=== PATIENT | female | born 1960 | race Caucasian/White ===

== ENCOUNTER → 2016-07-22 | Outpatient (CLI) | payer MEDICARE ==
--- NOTE | 2016-07-22 23:13 | WWHP ---
DATE OF SERVICE: 07/22/2016. CHIEF COMPLAINT: Patient is here for her routine gynecologic exam and mammogram. HPI: This is a 55-year-old G0 with an LMP of 1994. She is status post BRADFORD and later BSO for uterine and ovarian cancer. The patient is without gynecologic complaints. PAST MEDICAL HISTORY: Endometrial cancer in 1994, ovarian cancer 2000. She is status post BRADFORD and later BSO for these cancers. Also history of elevated cholesterol, seizure disorder, osteoarthritis of the back, hypothyroidism, asthma, and schizoaffective disorder and gastroesophageal reflux disease. MEDICATIONS: 1. Advair Diskus 1 puff b.i.d. 2. Cyclobenzaprine 10 mg b.i.d. 3. Flonase nasal spray one spray b.i.d. 4. Thyroxine 100 mcg daily. 5. Omeprazole 40 mg daily. 6. Risperdal 2 mg daily. 7. Tegretol-XR 300 mg b.i.d. 8. Ventolin HFA inhaler 2 puffs q.i.d. p.r.n. 9. Zocor 20 mg at bedtime. ALLERGIES TO PENICILLIN BENADRYL GARAMYCIN, SYNALGOS, NEOSPORIN, ERYTHROMYCIN, OMNIPAQUE AND CODEINE. 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 SOCIAL HISTORY: She denies tobacco, alcohol, and drug use. She is single and is not sexually active. REVIEW OF SYSTEMS: She has gained about 12 pounds in the last year. She denies respiratory, cardiac, or GI problems. MUSCULOSKELETAL: She has some low back discomfort and some achiness in her legs because of increased activity that she recently did. PHYSICAL EXAM: Blood pressure 120/79. Height 5 feet 9 inches. Weight 229 pounds. Temperature 97.8, pulse 83. This a well-developed, well-nourished white female who is alert and oriented x3 in no acute distress. HEENT is within normal limits. NECK: Supple without mass or thyromegaly. CHEST AND LUNGS: Clear to auscultation. HEART: Regular rate and rhythm. Breasts are without mass or discharge. Axillary exam is negative for adenopathy. BACK: Negative for CVA tenderness. ABDOMEN: Slight redness the umbilicus which is similar to her exam last year and there is no drainage noted. The abdomen is soft, nontender and mildly obese. There are no palpable abdominal masses. PELVIC EXAM: Normal external genitalia with minimal atrophy. Vagina reveals mild atrophy without lesions. There is no evidence of prolapse. There is no unusual discharge. Bimanual exam is negative for mass or tenderness. Rectovaginal exam negative for mass or tenderness and is negative for occult blood. EXTREMITIES: Nontender. IMPRESSION: 1. 55-year-old menopausal female, status post total abdominal hysterectomy and later BSO for endometrial ovarian cancers in the past. 2. Normal gynecologic exam. PLAN: 1. Pap smear of the vaginal cuff was performed because of her history of gynecologic cancers in the past. 2. Self-breast examination was discussed. 3. Mammogram will be done today. 4. Osteoporosis prevention was discussed. 5. She will return in one year.
--- NOTE | 2016-07-23 10:20 | MM ---
Reason for exam: screening (asymptomatic). Last mammogram was performed 1 year ago. History: Patient is postmenopausal, has history of ovarian cancer at age 40, and is nulliparous. Physical Findings: A clinical breast exam by your physician is recommended on an annual basis and results should be correlated with mammographic findings. MG 3D Screening Mammo W/Cad Bilateral CC and MLO view(s) were taken. XCCL view(s) were taken of the right breast. Prior study comparison: July 17, 2015, bilateral MG 3d screening mammo w/cad. July 11, 2014, bilateral MG screening mammo w CAD. July 05, 2013, bilateral digital screening mammo w/CAD. There are scattered fibroglandular densities. There is chronic nodularity in the right breast. There is no discrete abnormality. ASSESSMENT: Negative, BI-RAD 1 RECOMMENDATION: Routine screening mammogram of both breasts in 1 year.
== END | disposition home or self-care (01) ==
LOC: WWCWWP 11:23
PROVIDERS: ATTEND Obstetrics & Gynecology
DX: Z12.31 Encounter for screening mammogram for malignant neoplasm of breast (principal)
CPT/HCPCS: 77063; G0202

== ENCOUNTER → 2017-08-28 | Outpatient (CLI) | payer MEDICARE, OTHER ==
[2017-08-28 14:04] LABS: Basophils % (A) 0 %; Eosinophils # (A) 0.1 k/uL (0-0.7); Eosinophils % (A) 1 %; HCT 45.6 % (34.0-46.0); HGB 15.5 gm/dL (11.4-16.0); Lymphocytes # (A) 1.2 k/uL (1.0-4.8); Lymphocytes % (A) 14 %; MCH 30.3 pg (25.0-35.0); MCHC 33.9 g/dL (31.0-37.0); MCV 89.4 fL (80.0-100.0); Mean Platelet Volume 6.5; Monocytes # (A) 0.5 k/uL (0-1.0); Monocytes % (A) 6 %; Neutrophils # (A) 6.5 k/uL (1.3-7.7); Neutrophils % (A) 77 %; Platelet Count 274 k/uL (150-450); RBC 5.11 m/uL (3.80-5.40); RDW 12.7 % (11.5-15.5); WBC 8.4 k/uL (3.8-10.6)
[2017-08-28 14:14] LABS: Amorphous Sediment,Urine Occasional /hpf; Appearance,Urine Clear (Clear); Bilirubin,Urine Negative (Negative); Blood,Urine Negative (Negative); Color,Urine Dark Yellow; Glucose,Urine (UA) Negative (Negative); Ketones,Urine Trace (Negative); Leukocyte Esterase,Urine Trace (Negative); Mucus,Urine Occasional /hpf; Nitrite,Urine Negative (Negative); PH, Urine 5.5 (5.0-8.0); Protein,Urine Trace (Negative); Specific Gravity,Urine 1.031 (1.001-1.035); Squamous Epithelial Cell,Urine 1 /hpf (0-4); WBC,Urine 2 /hpf (0-5)
[2017-08-28 14:18] LABS: ALT 54 U/L (9-52); AST 39 U/L (14-36); Albumin 4.8 g/dL (3.5-5.0); Alkaline Phosphatase 139 U/L (38-126); Anion Gap 17 mmol/L; Blood Urea Nitrogen 24 mg/dL (7-17); Calcium 10.3 mg/dL (8.4-10.2); Carbon Dioxide 24 mmol/L (22-30); Chloride 106 mmol/L (98-107); Glucose 104 mg/dL (74-99); Potassium 4.3 mmol/L (3.5-5.1); Sodium 147 mmol/L (137-145); Total Bilirubin 0.4 mg/dL (0.2-1.3); Total Protein 7.6 g/dL (6.3-8.2)
[2017-08-28 15:58] LABS: Erythrocyte Sedimentation Rate 4 mm/hr (0-20)
== END | disposition home or self-care (01) ==
LOC: LABWHC1 13:32
PROVIDERS: ATTEND Internal Medicine Critical Care Medicine
DX: R50.9 Fever, unspecified (principal)
CPT/HCPCS: 36415; 80053; 81001; 85025; 85652

== ENCOUNTER → 2017-10-13 | Outpatient (CLI) | payer MEDICARE, OTHER ==
[2017-10-13 13:38] VITALS: BP 127/69; PULSE 88; TEMP 98.1
--- NOTE | 2017-10-13 14:16 | P.HPOB ---
History of Present Illness H&P Date: 10/13/17 Chief Complaint: The patient is here for her routine gynecologic exam. This is a 57-year-old G0 with an LMP of 1994. She is so supposed BRADFORD and later BSO for uterine and ovarian cancer. The patient is without gynecologic complaints. Review of Systems The patient's weight has been stable over the last year. She denies respiratory , cardiac, or G.I. problems. 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 She has no history of STDs. History of Any Multi-Drug Resistant Organisms: None Reported Past Surgical History: Hysterectomy (1995), Tonsillectomy Additional Past Surgical History / Comment(s): D&C, BSO in 2000, eye surgery, colonoscopy 2012(). Past Psychological History: Schizoaffective Disorder Smoking Status: Never smoker Past Alcohol Use History: None Reported Past Drug Use History: None Reported - Past Family History Father Family Medical History: Cancer (:), COPD, Hyperlipidemia, Hypertension Additional Family Medical History / Comment(s): Macular degeneration. Mother Family Medical History: Hyperlipidemia, Hypertension Medications and Allergies Home Medications Medication Instructions Recorded Confirmed Type Albuterol Inhaler [Ventolin Hfa mcg PO DIRECTED PRN 10/13/17 History Inhaler] Cyclobenzaprine [Flexeril] mg PO BID 10/13/17 History Fluticasone Propionate [Flovent device PO BID 10/13/17 History Diskus] Fluticasone/Salmeterol [Advair device INHALATION BID 10/13/17 History 250-50 Diskus] Levothyroxine Sodium [Synthroid] mcg PO DAILY 10/13/17 History Omeprazole [PriLOSEC] mg PO DAILY 10/13/17 History Simvastatin [Zocor] mg PO HS 10/13/17 History carBAMazepine [TEGretol XR] 300 mg PO DIRECTED 10/13/17 10/13/17 History risperiDONE [RisperDAL] mg PO HS 10/13/17 History Allergies Allergy/AdvReac Type Severity Reaction Status Date / Time Penicillins AdvReac Nausea & Unverified 10/13/17 13:34 Vomiting Exam Vital Signs Temp Pulse BP 10/13/17 13:34 98.1 F 88 127/69 Intake and Output 10/12/17 10/13/17 10/13/17 22:59 06:59 14:59 Other: Weight 103.419 kg Height 5'10", BMI 33 . This is a well-developed well-nourished heavyset white female who is alert and oriented times 3 in no acute distress. HEENT: Within normal limits. NECK: Supple without mass or thyromegaly. CHEST AND LUNGS: Clear to auscultation. HEART: Regular rate and rhythm. BREASTS: Are without mass or discharge. AXILLARY EXAM: Negative for adenopathy. BACK: Negative for CVA tenderness. ABDOMEN: Soft, obese, nontender, without palpable masses. PELVIC EXAM: External genitalia appears normal with mild atrophy. Vagina appears normal mild atrophy. There is no evidence of prolapse. Bimanual examination is negative for mass or tenderness. RECTAL EXAM: Rectovaginal exam is negative for mass or tenderness and is negative for occult blood. EXTREMITIES: Nontender. IMPRESSION: 1. 57-year-old menopausal female with history of endometrial cancer and ovarian cancer with no evidence of recurrence. 2. Multiple medical problems. PLAN: 1. Pap smear of the vaginal cuff was performed. 2. Self breast awareness was discussed. 3. Screening mammogram was recently done in July 2017. She'll repeat this in one year. 4. Osteoporosis prevention was discussed. She had a normal bone density testing 2013. We will plan on repeating this in 2019. 5. She will return in one year.
== END | disposition home or self-care (01) ==
LOC: WWCWWP 12:19
PROVIDERS: ATTEND Obstetrics & Gynecology
DX: Z53.9 Procedure and treatment not carried out, unspecified reason (principal)

== ENCOUNTER → 2018-08-16 | Outpatient (CLI) | payer MEDICARE, OTHER ==
--- NOTE | 2018-08-17 10:58 | MM ---
Reason for exam: screening (asymptomatic). Last mammogram was performed 1 year and 1 month ago. History: Patient is postmenopausal, has history of ovarian cancer at age 40, and is nulliparous. Physical Findings: A clinical breast exam by your physician is recommended on an annual basis and results should be correlated with mammographic findings. MG 3D Screening Mammo W/Cad Bilateral CC and MLO view(s) were taken. Prior study comparison: July 23, 2017, bilateral MG 3d screening mammo w/cad. July 22, 2016, bilateral MG 3d screening mammo w/cad. There are scattered fibroglandular densities. There is chronic nodularity in the right breast. No significant changes when compared with prior studies. ASSESSMENT: Negative, BI-RAD 1 RECOMMENDATION: Routine screening mammogram of both breasts in 1 year.
== END ==
LOC: RADMAMWWP 10:50
PROVIDERS: ATTEND Internal Medicine Critical Care Medicine
DX: Z12.31 Encounter for screening mammogram for malignant neoplasm of breast (principal)
CPT/HCPCS: 77063; 77067

== ENCOUNTER → 2020-11-21 | Outpatient (CLI) | payer MEDICARE, OTHER ==
[2020-11-21 11:18] VITALS: BP 120/86; PULSE 61; RESP 16; TEMP 98.4
--- NOTE | 2020-11-21 12:15 | P.HPOB ---
History of Present Illness H&P Date: 11/21/20 Chief Complaint: The patient is here for her routine gynecologic exam and ma mmogram. This is a 57-year-old G0 with an LMP of 1994. The patient is status post BRADFORD and later BSO for uterine cancer and ovarian cancer. The patient is without gynecologic complaints. She is not sexually active. Review of Systems She has gained about 18 kg over the past 3 years. She denies respiratory or cardiac problems. GI: The patient has been having some issues with stomach upset at night if she eats after 6 PM. Past Medical History Past Medical History: Asthma, Cancer (Endometrial cancer in 1994, ovarian cancer 2000.), GERD/Reflux, Hyperlipidemia, Osteoarthritis (OA), Seizure Disorder, Thyroid Disorder (Hypothyroid) Additional Past Medical History / Comment(s): Hypothyroidism. 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 She has no history of STDs. History of Any Multi-Drug Resistant Organisms: None Reported Past Surgical History: Hysterectomy (1995), Tonsillectomy Additional Past Surgical History / Comment(s): BRADFORD 1995, BSO in 2000. D&C, eye surgery, colonoscopy 2012(next after 5yr). Past Psychological History: Schizoaffective Disorder Smoking Status: Never smoker Past Alcohol Use History: None Reported Past Drug Use History: None Reported Additional History: She is single and is not seeing anybody and is not sexually active. She is disabled. - Past Family History Father Family Medical History: Cancer (:), COPD, Hyperlipidemia, Hypertension Additional Family Medical History / Comment(s): Colon cancer. Macular degeneration. Mother Family Medical History: Hyperlipidemia, Hypertension Medications and Allergies Home Medications Medication Instructions Recorded Confirmed Type Albuterol Inhaler (Mhu) [Ventolin mcg PO DIRECTED PRN 10/13/17 History Hfa Inhaler] Cyclobenzaprine [Flexeril] mg PO BID 10/13/17 History Fluticasone Propionate [Flovent device PO BID 10/13/17 History Diskus] Fluticasone/Salmeterol [Advair device INHALATION BID 10/13/17 History 250-50 Diskus] Levothyroxine Sodium [Synthroid] mcg PO DAILY 10/13/17 History Omeprazole [PriLOSEC] mg PO DAILY 10/13/17 History Simvastatin [Zocor] mg PO HS 10/13/17 History carBAMazepine [TEGretol XR] 300 mg PO DIRECTED 10/13/17 11/21/20 History risperiDONE [RisperDAL] mg PO HS 10/13/17 History Allergies Allergy/AdvReac Type Severity Reaction Status Date / Time Penicillins AdvReac Nausea & Unverified 11/21/20 10:59 Vomiting Exam Vital Signs Temp Pulse Resp BP Pulse Ox 11/21/20 11:06 98.4 F 61 16 120/86 96 Intake and Output 11/20/20 11/21/20 11/21/20 22:59 06:59 14:59 Other: Weight 121.563 kg Height 5 feet 10 inches, weight 268 pounds, BMI 38.5. This is a well-developed well-nourished heavyset white female who is alert and oriented times 3 in no acute distress. HEENT: Within normal limits. NECK: Supple without mass or thyromegaly. CHEST AND LUNGS: Clear to auscultation. HEART: Regular rate and rhythm. BREASTS: Are without mass or discharge. AXILLARY EXAM: Negative for adenopathy. BACK: Negative for CVA tenderness. ABDOMEN: Soft, obese, nontender, without palpable masses. PELVIC EXAM: External genitalia appears normal with mild atrophy. Vagina appears normal mild atrophy. There is no evidence of prolapse. Bimanual examination is negative for mass or tenderness. RECTAL EXAM: Rectovaginal exam is negative for mass or tenderness and is negative for occult blood. EXTREMITIES: Nontender. IMPRESSION: 1. 60-year-old menopausal female status post BRADFORD and later BSO for endometrial cancer and ovarian cancer with no evidence of recurrence on exam. 2. Multiple medical problems. PLAN: 1. Pap smear of the vaginal cuff was performed. We have continued regular Pap smears because of her history of multiple gynecologic cancers. 2. Self breast awareness was discussed with the patient. We have also discussed symptoms associated with inflammatory breast cancer. 3. Screening mammogram will be done today. 4. Osteoporosis prevention was discussed. I have stressed the importance of adequate calcium, vitamin D and regular exercise. Recommended amounts of calcium and vitamin D were also discussed. I have recommended bone density testing since it has been about 7 years since her last one. The order slip was given to the patient. 5. Colonoscopy was recommended since it has been about 8 years since her last one. She was told that should be repeated after 5 years and she does have family history of colon cancer. She will discuss this with her primary care physician and her upcoming appointment with him. 6. She was advised to return in one year for her annual well woman exam.
--- NOTE | 2020-11-22 11:14 | MM ---
Reason for exam: screening (asymptomatic). Last mammogram was performed 2 years and 3 months ago. History: Patient is postmenopausal, has history of ovarian cancer at age 40, and is nulliparous. Physical Findings: A clinical breast exam by your physician is recommended on an annual basis and results should be correlated with mammographic findings. MG 3D Screening Mammo W/Cad Bilateral CC, MLO, and XCCL view(s) were taken. Prior study comparison: August 16, 2018, bilateral MG 3d screening mammo w/cad. July 23, 2017, bilateral MG 3d screening mammo w/cad. The breast tissue is heterogeneously dense. This may lower the sensitivity of mammography. There is no discrete abnormality. No significant changes when compared with prior studies. ASSESSMENT: Negative, BI-RAD 1 RECOMMENDATION: Routine screening mammogram of both breasts in 1 year.
== END | disposition home or self-care (01) ==
LOC: WWCWWP 10:29
PROVIDERS: ATTEND Obstetrics & Gynecology
DX: Z12.31 Encounter for screening mammogram for malignant neoplasm of breast (principal); Z85.43 Personal history of malignant neoplasm of ovary; Z85.42 Personal history of malignant neoplasm of other parts of uterus; Z78.0 Asymptomatic menopausal state
CPT/HCPCS: 77063; 77067

== ENCOUNTER → 2023-11-09 | Outpatient (CLI) | payer MEDICARE, OTHER ==
--- NOTE | 2023-12-02 20:10 | MM ---
Reason for Exam: Screening (asymptomatic). Last mammogram was performed 3 year(s) and 0 month(s) ago. Patient History: Menarche at age 11. Patient has no children. Left ovary removed at age 40. Right ovary removed at age 40. Hysterectomy at age 34. Postmenopausal. Ovarian cancer, age 40. Risk Values: Josselyn 5 year model risk: 1.9%. NCI Lifetime model risk: 8.1%. Prior Study Comparison: 07/23/2017 Bilateral Screening Mammogram, [facility]. 08/16/2018 Bilateral Screening Mammogram, [facility]. 11/21/2020 Bilateral Screening Mammogram, [facility]. Tissue Density: There are scattered areas of fibroglandular density. Findings: Analyzed By CAD. No elongated nodularity anterior depth left breast at the upper quadrant. Further evaluation recommended. Lateral asymmetric density right cc view remains unchanged. Otherwise, no significant change. Overall Assessment: Incomplete: need additional imaging evaluation, BI-RAD 0 Management: Special View Mammogram of the left breast. Diagnostic Breast Ultrasound of the left breast. . [facility] will attempt to contact patient to return for supplemental views and ultrasound if indicated. Electronically signed and approved by: Osmar Stockton M.D. Radiologist
== END | disposition home or self-care (01) ==
LOC: RADMAMWWP 14:40
PROVIDERS: ATTEND Internal Medicine Critical Care Medicine
DX: Z12.31 Encounter for screening mammogram for malignant neoplasm of breast (principal); M85.88 Other specified disorders of bone density and structure, other site; Z79.52 Long term (current) use of systemic steroids; Z78.0 Asymptomatic menopausal state; R92.323 Mammographic fibroglandular density, bilateral breasts
CPT/HCPCS: 77063; 77067

== ENCOUNTER → 2024-02-03 | Outpatient (CLI) | payer MEDICARE, OTHER ==
--- NOTE | 2024-02-03 14:56 | BD ---
EXAMINATION TYPE: Axial Bone Density DATE OF EXAM: 02/03/2024 CLINICAL HISTORY: 63 years old Female. ICD-10 CODE: M85.88 OTHER DISORDER OF BONE DENSITY , Z78.0 pt yelling and out of breath, difficult to understand, slurring Height: 66 Weight: 275 FRAX RISK QUESTIONS: Alcohol (3 or more units per day): unsure Glucocorticoids (More than 3mos): asthma inhalers, for long time, and prednisone on and off (Ex: prednisone, prednisolone, methylprednisolone, dexamethasone, and hydrocortisone). History of Fracture in Adulthood: yes Secondary Osteoporosis: yes 3. Menopause before 45: yes, 38 yrs old RISK FACTORS HISTORY OF: rt elbow fx, right foot broken, MEDICATIONS: Thyroid Medications: yes, synthroid product long time, vit d, calcium, hx of ovarian cancer, chemo, cholesterol meds, osteoarthritis EXAM MEASUREMENTS: Bone mineral densitometry was performed using the [employer] System. Bone mineral density as measured about the Lumbar spine is: ----- L1-L4(G/cm2): 1.323 T Score Values are as follows: ----- L1: 0.6 ----- L2: -0.1 ----- L3: 1.0 ----- L4: 2.8 ----- L1-L4: 1.2 Z Score Values are as follows: ----- L1: 0.9 ----- L2: 0.2 ----- L3: 1.3 ----- L4: 3.1 ----- L1-L4: 1.5 Bone mineral density has: Increased 6.3% since her last study in 07.05.2013 Bone mineral density about the R hip (g/cm2): 0.957 Bone mineral density about the L hip (g/cm2): 1.010 T Score values are as follows: -----R Neck: -1.4 -----L Neck: -1.1 -----R Total: -0.4 -----L Total: 0.0 Z Score values are as follows: -----R Neck: -0.8 -----L Neck: -0.4 -----R Total: -0.1 -----L Total: 0.3 Bone mineral density has: Increased 9.7% since her last study in 07.05.2013 FRAX%s: The graph provided illustrates a 18.7 % chance for a major osteoporotic fx and a 1.8% chance for the hips probability for fx in 10 years time. IMPRESSION: Osteopenia (T Score between -2.5 and -1). There is slightly increased risk of fracture and the patient may be considered for treatment. Re-Screen 2-5 years. NOTE: T-SCORE=SD OF THE YOUNG ADULT MEAN. [facility], , 02/03/2024 2:54 PM
== END | disposition home or self-care (01) ==
LOC: RADBDWWP 13:22
PROVIDERS: ATTEND Internal Medicine Critical Care Medicine
CPT/HCPCS: 77080

== ENCOUNTER 2024-03-11 07:56 | Inpatient (IN) | payer MEDICARE, OTHER ==
--- NOTE | 2024-03-11 08:23 | ED ---
General Adult HPI - General Chief complaint: Urogenital Stated complaint: Kidney stones Time Seen by Provider: 03/11/24 07:58 Source: patient, EMS, RN notes reviewed, old records reviewed Mode of arrival: EMS Limitations: no limitations - History of Present Illness Initial comments: Patient is a 63-year-old female with history of schizophrenia transferred from [place] for kidney stone. Patient states symptoms started around 10:00 yesterday. Patient states discomfort is mild at this time rated 3/10. Patient denies fever. No nausea or vomiting. Patient denies history of similar symptoms previously. Chart was reviewed for [facility]. CT report and labs are not available at this time and we are contacting them for reports. - Related Data Home Medications Medication Instructions Recorded Confirmed Albuterol Inhaler [Ventolin Hfa 2 puff INHALATION RT-Q4H 10/13/17 03/11/24 Inhaler] Cyclobenzaprine [Flexeril] 10 mg PO BID 10/13/17 03/11/24 Levothyroxine Sodium [Synthroid] 100 mcg PO DAILY 10/13/17 03/11/24 Omeprazole [PriLOSEC] 40 mg PO DAILY 10/13/17 03/11/24 Simvastatin [Zocor] 20 mg PO DAILY 10/13/17 03/11/24 risperiDONE [RisperDAL] 2 mg PO HS 10/13/17 03/11/24 Fluticasone Nasal [place] [Flonase 2 spr EA NOSTRIL DAILY 03/11/24 03/11/24 Nasal [place]] Fluticasone Propion/Salmeterol 1 puff INHALATION RT-BID 03/11/24 03/11/24 [Fluticasone-Salmeterol 250-50] carBAMazepine [carBAMazepine ER] 300 mg PO BID 03/11/24 03/11/24 Allergies Allergy/AdvReac Type Severity Reaction Status Date / Time bacitracin Allergy Unknown Verified 03/11/24 11:55 [From Neosporin ([id number])] clarithromycin Allergy Unknown Verified 03/11/24 11:55 codeine Allergy Unknown Verified 03/11/24 11:55 diphenhydramine Allergy Unknown Verified 03/11/24 11:55 [From Benadryl] erythromycin base Allergy Unknown Verified 03/11/24 11:55 gentamicin Allergy Unknown Verified 03/11/24 11:55 Iodinated Contrast Media Allergy Unknown Verified 03/11/24 11:55 iodine Allergy Unknown Verified 03/11/24 11:55 iohexol [From Omnipaque] Allergy Unknown Verified 03/11/24 11:55 miconazole Allergy Unknown Verified 03/11/24 11:55 [From Neosporin AF] neomycin Allergy Unknown Verified 03/11/24 11:55 [From Neosporin ([id number])] polymyxin B Allergy Unknown Verified 03/11/24 11:55 [From Neosporin ([id number])] Penicillins AdvReac Nausea & Verified 03/11/24 11:55 Vomiting Review of Systems ROS Statement: Those systems with pertinent positive or pertinent negative responses have been documented in the HPI. ROS Other: All systems not noted in ROS Statement are negative. Constitutional: Denies: fever Eyes: Denies: eye pain ENT: Denies: ear pain Gastrointestinal: Reports: as per HPI Musculoskeletal: Reports: as per HPI Past Medical History Past Medical History: Asthma, Cancer, GERD/Reflux, Hyperlipidemia, Osteoarthritis (OA), Seizure Disorder, Thyroid Disorder Additional Past Medical History / Comment(s): Hypothyroidism. 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 She has no history of STDs. History of Any Multi-Drug Resistant Organisms: None Reported Past Surgical History: Hysterectomy, Tonsillectomy Additional Past Surgical History / Comment(s): [place] 1995, BSO in 2000. D&C, eye surgery, colonoscopy 2012(next after 5yr). Past Psychological History: Schizoaffective Disorder Smoking Status: Never smoker Past Alcohol Use History: None Reported Past Drug Use History: None Reported - Past Family History Father Family Medical History: Cancer (:), COPD, Hyperlipidemia, Hypertension Additional Family Medical History / Comment(s): Colon cancer. Macular degeneration. Mother Family Medical History: Hyperlipidemia, Hypertension General Exam Limitations: no limitations General appearance: alert Head exam: Present: normocephalic Eye exam: Present: normal appearance Neck exam: Present: normal inspection. Absent: tenderness, meningismus Respiratory exam: Present: normal lung sounds bilaterally Cardiovascular Exam: Present: regular rate, normal rhythm Expanded Peripheral pulses: 2+: Posterior Tibialis (R), Posterior Tibialis (L), Dorsalis Pedis (R), Dorsalis Pedis (L) GI/Abdominal exam: Present: soft. Absent: distended, tenderness, guarding, rebound, rigid, pulsatile mass Extremities exam: Present: normal inspection Back exam: Present: CVA tenderness (L) (Mild tenderness to palpation) Neurological exam: Present: alert Psychiatric exam: Present: flat affect Skin exam: Present: normal color Course Vital Signs 03/11/24 03/11/24 03/11/24 07:57 08:20 08:30 Temperature 99.2 F Pulse Rate 109 H 111 H 112 H Respiratory 20 20 37 H Rate Blood Pressure 124/95 141/79 141/79 O2 Sat by Pulse 99 97 96 Oximetry 03/11/24 03/11/24 03/11/24 09:30 09:46 10:30 Temperature 103.2 F H 106.3 F H Pulse Rate 129 H 134 H Respiratory 25 H 48 H 30 H Rate Blood Pressure 128/66 128/66 168/47 O2 Sat by Pulse 97 96 95 Oximetry 03/11/24 03/11/24 03/11/24 11:00 11:07 11:39 Temperature 104.5 F H 103.6 F H Pulse Rate 115 H 105 H Respiratory 30 H 32 H Rate Blood Pressure 90/47 105/86 131/98 O2 Sat by Pulse 91 L 92 L 96 Oximetry 03/11/24 13:03 Temperature 102.4 F H Pulse Rate Respiratory Rate Blood Pressure O2 Sat by Pulse Oximetry Medical Decision Making - Medical Decision Making Patient provided 2 L fluid bolus for ideal body weight of 5 foot 10 female of 68 kg which is 2040 mL Was pt. sent in by a medical professional or institution (, PA, CARGO TRIMMER, urgent care, hospital, or snf...) When possible be specific @ -Patient was transferred from [facility] Did you speak to anyone other than the patient for history (EMS, parent, family, police, friend...)? What history was obtained from this source @ - transferring physician Did you review nursing and triage notes (agree or disagree)? Why? @ -I reviewed and agree with nursing and triage notes Were old charts reviewed (outside hosp., previous admission, EMS record, old EKG, old radiological studies, urgent care reports/EKG's, snf records)? Report findings @ -Chart reviewed from [facility] Differential Diagnosis (chest pain, altered mental status, abdominal pain women, abdominal pain men, vaginal bleeding, weakness, fever, dyspnea, syncope, headache, dizziness, GI bleed, back pain, seizure, CVA, palpatations, mental health, musculoskeletal)? @ -Differential Abdominal Pain Women: Appendicitis, Cholecystitis, diverticulosis, ischemic bowel, pancreatitis, hepatitis, UTI, gastroenteritis, AAA, incarcerated hernia, bowel obstruction, constipation, inflammatory bowel, hepatitis, peptic ulcer disease, splenic infarction, perforated viscus, vulvitis, ovarian torsion, PID, kidney stone, placenta abruption, this is not meant to be an all-inclusive list EKG interpreted by me (3pts min.). @ -As above X-rays interpreted by me (1pt min.). @ -KUB shows delayed excretion left renal. Chest x-ray shows limited exam. Hypoventilation. CT interpreted by me (1pt min.). @ -CT angio of the chest was ordered and is still pending U/S interpreted by me (1pt. min.). @ -None done What testing was considered but not performed or refused? (CT, X-rays, U/S, labs)? Why? @ -CT angio of the chest was ordered and is still pending What meds were considered but not given or refused? Why? @ -None Did you discuss the management of the patient with other professionals (professionals i.e. , PA, CARGO TRIMMER, lab, RT, psych nurse, social human services assistants, non licensed operator, teacher, safety security officer, nurse outreach case manager)? Give summary @ -Case was discussed with Dr. Kelley who will consult and agrees with medical admission and Rocephin. Case again discussed with Dr. Kelley with plans to take patient to the OR for probable stent placement. Case also discussed with mary ann Reardon with [facility] who will admit. Was smoking cessation discussed for >3mins.? @ -No Was critical care preformed (if so, how long)? @ -33 minutes critical care time Were there social determinants of health that impacted care today? How? (Homelessness, low income, unemployed, alcoholism, drug addiction, transportation, low edu. Level, literacy, decrease access to med. care, senior living, rehab)? @ -No Was there de-escalation of care discussed even if they declined (Discuss DNR or withdrawal of care, Hospice)? DNR status @ -No What co-morbidities impacted this encounter? (DM, HTN, Smoking, COPD, CAD, Cancer, CVA, ARF, Chemo, Hep., AIDS, mental health diagnosis, sleep apnea, morbid obesity)? @ -History of schizophrenia Was patient admitted / discharged? Hospital course, mention meds given and route, prescriptions, significant lab abnormalities, going to OR and other pertinent info. @ -Patient presents as a transfer with concern for staghorn calculi. There is concern for potential infection as patient does develop fever and abnormal vital signs. Patient given fluids, blood culture and lactic acid ordered. IV antibiotics ordered. Patient will be admitted with urology consult. Admission orders written. Consults placed. Undiagnosed new problem with uncertain prognosis? @ -No Drug Therapy requiring intensive monitoring for toxicity (Heparin, Nitro, Insulin, Cardizem)? @ -No Were any procedures done? @ -No Diagnosis/symptom? @ -UTI, sepsis severe, kidney stone Acute, or Chronic, or Acute on Chronic? @ -Acute, acute, acute Uncomplicated (without systemic symptoms) or Complicated (systemic symptoms)? @ -Default Side effects of treatment? @ -No Exacerbation, Progression, or Severe Exacerbation? @ -No Poses a threat to life or bodily function? How? (Chest pain, [place], [place], pneumonia, PE, COPD, DKA, ARF, appy, cholecystitis, CVA, Diverticulitis, Homicidal, Suicidal, threat to staff... and all critical care pts) @ -Threat for multiorgan dysfunction. Threat to renal function There is concern for severe sepsis diagnosed at 10:40 AM. - Lab Data Result diagrams: 03/11/24 09:10 03/11/24 09:10 Lab Results 03/11/24 03/11/24 03/11/24 Range/Units 09:10 09:10 09:10 WBC 17.5 H (3.8-10.6) k/uL RBC 4.65 (3.80-5.40) m/uL Hgb 14.3 (11.4-16.0) gm/dL Hct 42.3 (34.0-46.0) % MCV 90.9 (80.0-100.0) fL MCH 30.7 (25.0-35.0) pg MCHC 33.8 (31.0-37.0) g/dL RDW 13.1 (11.5-15.5) % Plt Count 174 (150-450) k/uL MPV 6.8 Neutrophils % 96 % Lymphocytes % 2 % Monocytes % 1 % Eosinophils % 0 % Basophils % 0 % Neutrophils # 16.8 H (1.3-7.7) k/uL Lymphocytes # 0.3 L (1.0-4.8) k/uL Monocytes # 0.2 (0-1.0) k/uL Eosinophils # 0.1 (0-0.7) k/uL Basophils # 0.0 (0-0.2) k/uL Sodium 139 (137-145) mmol/L Potassium 4.2 (3.5-5.1) mmol/L Chloride 108 H (98-107) mmol/L Carbon Dioxide 22 (22-30) mmol/L Anion Gap 9 mmol/L BUN 20 H (7-17) mg/dL Creatinine 1.07 H (0.52-1.04) mg/dL Est GFR (CKD-EPI)AfAm 64 (>60 ml/min/1.73 sqM) Est GFR (CKD-EPI)NonAf 56 (>60 ml/min/1.73 sqM) Glucose 169 H (74-99) mg/dL Calcium 9.2 (8.4-10.2) mg/dL Total Bilirubin 0.8 (0.2-1.3) mg/dL AST 39 H (14-36) U/L ALT 34 (4-34) U/L Alkaline Phosphatase 129 H (38-126) U/L Total Protein 6.5 (6.3-8.2) g/dL Albumin 4.1 (3.5-5.0) g/dL Amylase 40 (30-110) U/L Lipase 32 (23-300) U/L Urine Color Urine Appearance (Clear) Urine pH (5.0-8.0) Ur Specific [place] (1.001-1.035) Urine Protein (Negative) Urine Glucose (UA) (Negative) Urine Ketones (Negative) Urine Blood (Negative) Urine Nitrite (Negative) Urine Bilirubin (Negative) Urine Urobilinogen (<2.0) mg/dL Ur Leukocyte Esterase (Negative) Urine RBC (0-5) /hpf Urine WBC (0-5) /hpf Urine WBC Clumps (None) /hpf Urine Mucus (None) /hpf Influenza Type A (PCR) Not Detected (Not Detectd) Influenza Type B (PCR) Not Detected (Not Detectd) RSV (PCR) Not Detected (Not Detectd) SARS-CoV-2 (PCR) Not Detected (Not Detectd) 03/11/24 Range/Units 11:13 WBC (3.8-10.6) k/uL RBC (3.80-5.40) m/uL Hgb (11.4-16.0) gm/dL Hct (34.0-46.0) % MCV (80.0-100.0) fL MCH (25.0-35.0) pg MCHC (31.0-37.0) g/dL RDW (11.5-15.5) % Plt Count (150-450) k/uL MPV Neutrophils % % Lymphocytes % % Monocytes % % Eosinophils % % Basophils % % Neutrophils # (1.3-7.7) k/uL Lymphocytes # (1.0-4.8) k/uL Monocytes # (0-1.0) k/uL Eosinophils # (0-0.7) k/uL Basophils # (0-0.2) k/uL Sodium (137-145) mmol/L Potassium (3.5-5.1) mmol/L Chloride (98-107) mmol/L Carbon Dioxide (22-30) mmol/L Anion Gap mmol/L BUN (7-17) mg/dL Creatinine (0.52-1.04) mg/dL Est GFR (CKD-EPI)AfAm (>60 ml/min/1.73 sqM) Est GFR (CKD-EPI)NonAf (>60 ml/min/1.73 sqM) Glucose (74-99) mg/dL Calcium (8.4-10.2) mg/dL Total Bilirubin (0.2-1.3) mg/dL AST (14-36) U/L ALT (4-34) U/L Alkaline Phosphatase (38-126) U/L Total Protein (6.3-8.2) g/dL Albumin (3.5-5.0) g/dL Amylase (30-110) U/L Lipase (23-300) U/L Urine Color Light Red Urine Appearance Turbid H (Clear) Urine pH 6.0 (5.0-8.0) Ur Specific [place] 1.043 H (1.001-1.035) Urine Protein 2+ H (Negative) Urine Glucose (UA) Trace H (Negative) Urine Ketones Trace H (Negative) Urine Blood Large H (Negative) Urine Nitrite Positive H (Negative) Urine Bilirubin Negative (Negative) Urine Urobilinogen <2.0 (<2.0) mg/dL Ur Leukocyte Esterase Large H (Negative) Urine RBC >182 H (0-5) /hpf Urine WBC >182 H (0-5) /hpf Urine WBC Clumps Occasional H (None) /hpf Urine Mucus Few H (None) /hpf Influenza Type A (PCR) (Not Detectd) Influenza Type B (PCR) (Not Detectd) RSV (PCR) (Not Detectd) SARS-CoV-2 (PCR) (Not Detectd) Critical Care Time Critical Care Time: Yes Disposition Clinical Impression: Calculus of kidney, Urinary tract infection, Severe sepsis Disposition: ADMITTED IP TO THIS [facility] Condition: Serious Is patient prescribed a controlled substance at d/c from ED?: No Referrals: Alyssa Madden MD [Primary Care Provider] - 1-2 days Time of Disposition: 13:15
[2024-03-11 09:26] LABS: Basophils % (A) 0 %; Eosinophils # (A) 0.1 k/uL (0-0.7); Eosinophils % (A) 0 %; HCT 42.3 % (34.0-46.0); HGB 14.3 gm/dL (11.4-16.0); Lymphocytes # (A) 0.3 k/uL (1.0-4.8); Lymphocytes % (A) 2 %; MCH 30.7 pg (25.0-35.0); MCHC 33.8 g/dL (31.0-37.0); MCV 90.9 fL (80.0-100.0); Mean Platelet Volume 6.8; Monocytes # (A) 0.2 k/uL (0-1.0); Monocytes % (A) 1 %; Neutrophils # (A) 16.8 k/uL (1.3-7.7); Neutrophils % (A) 96 %; Platelet Count 174 k/uL (150-450); RBC 4.65 m/uL (3.80-5.40); RDW 13.1 % (11.5-15.5); WBC 17.5 k/uL (3.8-10.6)
[2024-03-11 09:39] LABS: AST 39 U/L (14-36); African American GFR (CKD) 64 (>60 ml/min/1.73 sqM); Albumin 4.1 g/dL (3.5-5.0); Alkaline Phosphatase 129 U/L (38-126); Amylase 40 U/L (30-110); Anion Gap 9 mmol/L; Blood Urea Nitrogen 20 mg/dL (7-17); Calcium 9.2 mg/dL (8.4-10.2); Carbon Dioxide 22 mmol/L (22-30); Chloride 108 mmol/L (98-107); Glucose 169 mg/dL (74-99); Lipase 32 U/L (23-300); Non-African American GFR(CKD) 56 (>60 ml/min/1.73 sqM); Potassium 4.2 mmol/L (3.5-5.1); Sodium 139 mmol/L (137-145); Total Bilirubin 0.8 mg/dL (0.2-1.3); Total Protein 6.5 g/dL (6.3-8.2)
[2024-03-11] MEDS: LORazepam 2 MG/ML INJ IV STA (09:40)
[2024-03-11] MEDS: ACETAMINOPHEN IV (For NPO) 1,000 MG in EMPTY BAG 1 BAG IVPB STA (09:41)
[2024-03-11 10:19] LABS: ALT 34 U/L (4-34)
[2024-03-11] MEDS: SODIUM CHLORIDE 0.9% 1,000 ML IV STA ×2 (10:45→10:47)
[2024-03-11] MEDS: methylPREDNISolone SOD SUCCI 125 MG/2 ML VIAL IV STA (10:45)
[2024-03-11] MEDS: FAMOTIDINE 20 MG/2 ML VIAL IV STA (10:46)
[2024-03-11] MEDS: IBUPROFEN IV 800 MG in SODIUM CHLORIDE 0.9% 250 ML IV ONE (10:51)
--- NOTE | 2024-03-11 11:30 | XR ---
EXAMINATION TYPE: XR chest 1V DATE OF EXAM: 03/11/2024 COMPARISON: NONE CLINICAL INDICATION: Female, 63 years old with history of fever; FINDINGS: Limited by low lung volumes and hypoventilatory changes. There is diffuse interstitial prominence. He art size is accentuated likely upper limits of normal. Left base underpenetrated and not well assesse d. Left anterior chest wall injection port with catheter tip probably at the mid SVC level. IMPRESSION: Portable exam further limited by marked hypoventilatory changes. Correlate to exclude pulmonary vascu lar congestion. Left base underpenetrated and not well assessed. [facility], , 03/11/2024 11:28 AM
[2024-03-11 11:46] LABS: Appearance,Urine Turbid (Clear); Bilirubin,Urine Negative (Negative); Blood,Urine Large (Negative); Color,Urine Light Red; Glucose,Urine (UA) Trace (Negative); Ketones,Urine Trace (Negative); Leukocyte Esterase,Urine Large (Negative); Mucus,Urine Few /hpf; Nitrite,Urine Positive (Negative); Protein,Urine 2+ (Negative); RBC,Urine >182 /hpf (0-5); Specific Gravity,Urine 1.043 (1.001-1.035); Urobilinogen,Urine <2.0 mg/dL (<2.0); WBC,Urine >182 /hpf (0-5)
--- NOTE | 2024-03-11 12:05 | XR ---
EXAMINATION TYPE: XR KUB DATE OF EXAM: 03/11/2024 10:21 AM COMPARISON: Correlation outside CT 03/11/2024 CLINICAL INDICATION: Female, 63 years old with history of Left flank pain, , FINDINGS: There is excreted contrast from the left kidney. S1 indicate delayed excretion from the left kidney. The patient's outside CT is reviewed in addition to the left-sided staghorn calculi measuring up to 1 .3 cm, renal presence of a mid left ureteral stone measuring 7 mm. Nonobstructive bowel gas pattern. Contrast collecting within the bladder. Lung bases are clear. IMPRESSION: 1. The patient's outside CT is reviewed. We note a 7 mm stone in the mid left ureter. This would acco unt for the delayed excreting contrast now seen from the left kidney. 2. Redemonstrated staghorn calculi left kidney measuring up to 1.3 cm. [facility], , 03/11/2024 12:03 PM
--- NOTE | 2024-03-11 13:15 | CT ---
EXAMINATION TYPE: CT angio chest CT DLP: 1210.8 mGycm, Automated exposure control for dose reduction was used. DATE OF EXAM: 03/11/2024 12:49 PM COMPARISON: Chest radiograph from same day. CLINICAL INDICATION:Female, 63 years old with history of dyspnea; DYSPNEA TECHNIQUE/CONTRAST: CTA scan of the thorax is performed with IV Contrast, patient injected with 80 mL of Isovue 370, pulm onary embolism protocol. MIP images are created and reviewed. Reported patient has iodine and Benad ryl allergy. FINDINGS: Limited examination due to patient unable to follow breathing commands and previously injec beth at outside facility. Pulmonary Artery: The pulmonary artery is of normal size. Essentially nondiagnostic for evaluation of pulmonary embolism due to poor contrast bolus. Lungs/Pleura: Limited due to respiratory motion. No pleural effusion or pneumothorax. Bilateral lower lobe dependent subsegmental atelectasis. No suspicious pulmonary mass or nodule. Airway: Large airways are patent. Heart: The heart is mildly enlarged for size.. No pericardial effusion. Vasculature: No evidence of aortic aneurysm. Left anterior chest wall Mediport catheter with poor vis ualization of the tip due to contrast. Mediastinum: No evidence of adenopathy. Musculoskeletal: Mild degenerative disc disease changes are present throughout the thoracic spine. No acute osseous abnormality. Soft Tissues: Unremarkable. Lower neck: No significant findings. Upper Abdomen: Diffuse low-attenuation to the liver parenchyma.. IMPRESSION: 1. Bilateral lower lobe subsegmental atelectasis. Exam is essentially nondiagnostic for evaluation of pulmonary embolus due to poor contrast bolus. Recommend VQ scan for further evaluation due to patien t's iodine and Benadryl allergy with prior administration of intravenous contrast at outside facility . 2. Hepatic steatosis. [facility], , 03/11/2024 1:09 PM
[2024-03-11] MEDS ORDERED: NALOXONE 0.4 MG/ML 1 ML VIAL IV PRN (13:17)
[2024-03-11] MEDS ORDERED: IBUPROFEN 400 MG TAB PO PRN (13:17)
[2024-03-11] MEDS: LACTATED RINGERS 1,000 ML IV ONE (13:58)
[2024-03-11] MEDS: SODIUM CHLORIDE 0.9% 1,000 ML IV ONE ×3 (13:58→17:29)
--- NOTE | 2024-03-11 14:20 | P.HPIM ---
History of Present Illness H&P Date: 03/11/24 Patient is a 63-year-old female with hyperlipidemia, asthma, GERD, hypothyroidism, seizures, and schizoaffective disorder who is a transfer from [facility] due to nephrolithiasis. Patient at time of interview was uncooperative and a poor historian. Per chart review, patient arrived in [facility] ED for left-sided flank pain that has been ongoing for months infrequently. She denied nausea, vomiting, chest pain, shortness of breath, hematuria, or dysuria. Today the pain occurred very acutely. While in the [facility] ED, she did began to develop left abdominal colicky pain that was 3 out of 10 in intensity and worsens with movement. Per ED RN, on arrival to our ED patient had intermittent confusion and was initially resistant to care, agitated and very diaphoretic. She also appeared to be short of breath. Imaging from [facility]: CT scan of the abdomen showed staghorn calculus with superior pole of the left kidney measuring up to 2 cm, and cholelithiasis. Labs from [facility], showed WBC elevated at 18.06 hemoglobin 14.7 platelet 227,000 neutrophils elevated at 89. Sodium 140 potassium 3.6 chloride 110 bicarb 23 glucose 156 which is elevated BUN 19.4 creatinine 0.94 AST 44 which is elevated ALT 39 that is elevated alk phos 145 which is elevated at lactic acid elevated at 2.5. TSH was normal at 2.32. Urinalysis at that time only had +3 blood VBG showed pH of 7.43 which is elevated pCO2 31 which is low and pO2 46.7 which is elevated Labs from [facility] ED: WBC 17.5 hemoglobin 14.3 platelet count 1 74,000 sodium 139 potassium 4.2 chloride 108 BUN 20 creatinine 1.07 glucose 169 AST 39 ALT 34 alk phos 129 amylase 40 lipase 32. Urinalysis was turbid in appearance +2 protein trace glucose trace ketones large blood positive for nitrites and leukocyte esterase, RBCs, WBCs. Patient was negative for influenza, RSV and SARS COV 2 Imaging and [facility] ED: Chest x-ray independently interpreted shows hypoaeration but with some congestion. KUB x-ray reported to have 7 mm stone in the left mid ureter and staghorn calculi in the left kidney measuring up to 1.3 cm. Vitals on admission to our ED showed patient was a febrile at 106.3 pulse rate 115 respiratory rate 30 blood pressure 168/47 oxygen saturation 95% on nasal cannula 3 L Review of systems: Pertinent positives and negatives as discussed in HPI, a complete review of systems was performed and all other systems are negative. Physical examination: Vital signs reviewed General: non toxic, mild distress, on 3 L nasal cannula Derm: no unusual rashes/lesions, warm Head: atraumatic, normocephalic, symmetric Eyes: EOMI, anicteric sclera, pupils equal round reactive to light ENT: Nose and ears atraumatic Neck: No cervical lymphadenopathy, trachea midline, supple Mouth: no lip lesion, mucus membranes moist Cardiovascular: S1S2 tachycardic no murmur Lungs: CTA bilateral, no rhonchi, no rales, no accessory muscle use Abdominal: soft, nondistended, tender to light palpation in the left upper quadrant, no guarding, midline scar below the umbilicus Ext: muscle strength 5 out of 5 in all 4 extremities grossly, no gross muscle atrophy, no contractures, positive dorsalis pedis pulse bilateral, no edema Neuro: CN II-XI grossly intact, no gross focal neuro deficits Psych: Alert and oriented x 3, intermittently confused, flat affect Assessment/Plan: 63-year-old female with history of schizoaffective disorder who is a transfer from [facility] due to nephrolithiasis and is here for urologic evaluation. #. Sepsis secondary to infected staghorn calculi #. ACRROLL, post renal, secondary to above #. Acute pyelonephritis secondary to above Cardiac monitoring N.p.o. for now Rocephin 2 g IVPB initiated in the ED Continue Rocephin 2 g IVPB every 12 hours Acetaminophen 1 g IVP given in the ED Continue with Tylenol 650 p.o. every 6 and ibuprofen 400 mg p.o. every 6 as needed for fever or pain 0.9 normal saline 2 L bolus initiated in the ED. transition to lactated Ringer's 130 cc/h CT scan of the abdomen showed staghorn calculus with superior pole of the left kidney measuring up to 2 cm, and cholelithiasis KUB x-ray reported to have 7 mm stone in the left mid ureter and staghorn calculi in the left kidney measuring up to 1.3 cm UA positive for pyuria BUN elevated at 21 creatinine elevated at 1.07 Urine cultures Blood cultures Lactic acid CBC and CMP in the a.m. Urology consulted. Retrograde urography ordered. Will take patient to the OR today. #. Hyperglycemia Glucose today at 169 A1c in the a.m. #. Elevated alkaline phosphatase ALP at 129. Patient has no right upper quadrant pain. Will monitor for now Chronic Conditions: #. Hyperlipidemia Continue simvastatin 20 mg p.o. #. Asthma Continue Ventolin inhaler #. Hypothyroidism Continue Synthroid 100 mcg p.o. daily #. Schizoaffective disorder #. History of seizures Seizure precautions Fall precautions On carbamazepine 300 mg every 12 hours, cyclobenzaprine 10 mg, and risperidone 2 mg p.o. daily Check carbamazepine levels Continue medications once reconciled #. GERD Continue omeprazole 40 mg p.o. daily F: 130 cc/h of lactated Ringer's E: Replete as needed N: N.p.o. for now A: Patient DVT ppx: Heparin subcu Dispo: The patient is admitted with an anticipated greater than 2 midnight stay for evaluation of sepsis due to staghorn calculi CODE STATUS: Full Anticipated discharge place: Home Joan Weaver MD PGY-1 IM Dictation was produced using [employer] dictation software. please excuse any grammatical, word or spelling errors. I saw and evaluated the patient during the velasquez and critical portions of this encounter, and discussed the case in detail with the resident author of this note, I agree with the Assessment and Plan, and my changes, if any, are noted below or highlighted in blue. Past Medical History Past Medical History: Asthma, Cancer, GERD/Reflux, Hyperlipidemia, Osteoarthritis (OA), Seizure Disorder, Thyroid Disorder Additional Past Medical History / Comment(s): Hypothyroidism. 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 She has no history of STDs. History of Any Multi-Drug Resistant Organisms: None Reported Past Surgical History: Hysterectomy, Tonsillectomy Additional Past Surgical History / Comment(s): BRADFORD 1995, BSO in 2000. D&C, eye surgery, colonoscopy 2012(next after 5yr). Past Psychological History: Schizoaffective Disorder Smoking Status: Never smoker Past Alcohol Use History: None Reported Past Drug Use History: None Reported - Past Family History Father Family Medical History: Cancer (:), COPD, Hyperlipidemia, Hypertension Additional Family Medical History / Comment(s): Colon cancer. Macular degeneration. Mother Family Medical History: Hyperlipidemia, Hypertension Medications and Allergies Home Medications Medication Instructions Recorded Confirmed Type Albuterol Inhaler [Ventolin Hfa 2 puff INHALATION RT-Q4H 10/13/17 03/11/24 History Inhaler] Cyclobenzaprine [Flexeril] 10 mg PO BID 10/13/17 03/11/24 History Levothyroxine Sodium [Synthroid] 100 mcg PO DAILY 10/13/17 03/11/24 History Omeprazole [PriLOSEC] 40 mg PO DAILY 10/13/17 03/11/24 History Simvastatin [Zocor] 20 mg PO DAILY 10/13/17 03/11/24 History risperiDONE [RisperDAL] 2 mg PO HS 10/13/17 03/11/24 History Fluticasone Nasal [place] [Flonase 2 spr EA NOSTRIL DAILY 03/11/24 03/11/24 History Nasal [place]] Fluticasone Propion/Salmeterol 1 puff INHALATION RT-BID 03/11/24 03/11/24 History [Fluticasone-Salmeterol 250-50] carBAMazepine [carBAMazepine ER] 300 mg PO BID 03/11/24 03/11/24 History Allergies Allergy/AdvReac Type Severity Reaction Status Date / Time bacitracin Allergy Unknown Verified 03/11/24 11:55 [From Neosporin ([id number])] clarithromycin Allergy Unknown Verified 03/11/24 11:55 codeine Allergy Unknown Verified 03/11/24 11:55 diphenhydramine Allergy Unknown Verified 03/11/24 11:55 [From Benadryl] erythromycin base Allergy Unknown Verified 03/11/24 11:55 gentamicin Allergy Unknown Verified 03/11/24 11:55 Iodinated Contrast Media Allergy Unknown Verified 03/11/24 11:55 iodine Allergy Unknown Verified 03/11/24 11:55 iohexol [From Omnipaque] Allergy Unknown Verified 03/11/24 11:55 miconazole Allergy Unknown Verified 03/11/24 11:55 [From Neosporin AF] neomycin Allergy Unknown Verified 03/11/24 11:55 [From Neosporin ([id number])] polymyxin B Allergy Unknown Verified 03/11/24 11:55 [From Neosporin ([id number])] Penicillins AdvReac Nausea & Verified 03/11/24 11:55 Vomiting Physical Exam Vitals: Vital Signs Temp Pulse Resp BP Pulse Ox 03/11/24 11:39 103.6 F H 105 H 32 H 131/98 96 03/11/24 11:07 104.5 F H 115 H 30 H 105/86 92 L 03/11/24 11:00 90/47 91 L 03/11/24 10:30 106.3 F H 30 H 168/47 95 03/11/24 09:46 134 H 48 H 128/66 96 03/11/24 09:30 103.2 F H 129 H 25 H 128/66 97 03/11/24 08:30 112 H 37 H 141/79 96 03/11/24 08:20 111 H 20 141/79 97 03/11/24 07:57 99.2 F 109 H 20 124/95 99 Intake and Output 03/10/24 03/11/24 03/11/24 22:59 06:59 14:59 Other: Weight 124.738 kg Results CBC & Chem 7: 03/11/24 09:10 03/11/24 09:10 Labs: Abnormal Lab Results - Last 24 Hours (Table) 03/11/24 03/11/24 03/11/24 Range/Units 09:10 09:10 11:13 WBC 17.5 H (3.8-10.6) k/uL Neutrophils # 16.8 H (1.3-7.7) k/uL Lymphocytes # 0.3 L (1.0-4.8) k/uL Chloride 108 H (98-107) mmol/L BUN 20 H (7-17) mg/dL Creatinine 1.07 H (0.52-1.04) mg/dL Glucose 169 H (74-99) mg/dL AST 39 H (14-36) U/L Alkaline Phosphatase 129 H (38-126) U/L Urine Appearance Turbid H (Clear) Ur Specific [place] 1.043 H (1.001-1.035) Urine Protein 2+ H (Negative) Urine Glucose (UA) Trace H (Negative) Urine Ketones Trace H (Negative) Urine Blood Large H (Negative) Urine Nitrite Positive H (Negative) Ur Leukocyte Esterase Large H (Negative) Urine RBC >182 H (0-5) /hpf Urine WBC >182 H (0-5) /hpf Urine WBC Clumps Occasional H (None) /hpf Urine Mucus Few H (None) /hpf
[2024-03-11] MEDS ORDERED: PROPOFOL 10 MG/ML 20 ML VIAL IV ONE (14:25)
[2024-03-11] MEDS ORDERED: fentaNYL (PF) 50 MCG/ML 2 ML AMP ONE (14:25)
[2024-03-11] MEDS ORDERED: LIDOCAINE 1% INJ 10MG/ML (20 ML MDV) ONE (14:25)
[2024-03-11] MEDS ORDERED: SUCCINYLCHOLINE CHLORIDE 200 MG/10 ML VIAL IV ONE (14:25)
[2024-03-11] MEDS: ONDANSETRON 4 MG/2 ML VIAL IVP STA (14:27)
[2024-03-11] MEDS ORDERED: ALBUTEROL NEBULIZED 2.5 MG/3 ML INHALATION PRN (14:28)
--- NOTE | 2024-03-11 14:36 | P.GSCN ---
History of Present Illness Consult date: 03/11/24 Reason for Consult: Left hydronephrosis, UTI Requesting physician: Catalino Newsome History of present illness: The patient is a 63-year-old white female with schizophrenia. She is a poor historian. Apparently, she developed left flank pain yesterday and presented to [facility]. CT scan showed a partial staghorn calculus. She was transferred to [facility] for further care. My review of the CT scan shows delayed uptake and excretion of the left kidney, with a possible left distal ureteral calculus at the ureterovesical junction. Urinalysis is consistent with infection, and she has had a fever as high as 106 F in the ER. She denies any prior history of urolithiasis. Review of Systems - Gastrointestinal Reports nausea, Reports vomiting - Genitourinary Genitourinary: Reports kidney stones, Denies dysuria, Denies hematuria Past Medical History Past Medical History: Asthma, Cancer, GERD/Reflux, Hyperlipidemia, Osteoarthritis (OA), Seizure Disorder, Thyroid Disorder Additional Past Medical History / Comment(s): Hypothyroidism. 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 She has no history of STDs. History of Any Multi-Drug Resistant Organisms: None Reported Past Surgical History: Hysterectomy, Tonsillectomy Additional Past Surgical History / Comment(s): BRADFORD 1995, BSO in 2000. D&C, eye surgery, colonoscopy 2012(next after 5yr). Past Psychological History: Schizoaffective Disorder Smoking Status: Never smoker Past Alcohol Use History: None Reported Past Drug Use History: None Reported - Past Family History Father Family Medical History: Cancer (:), COPD, Hyperlipidemia, Hypertension Additional Family Medical History / Comment(s): Colon cancer. Macular degeneration. Mother Family Medical History: Hyperlipidemia, Hypertension Medications and Allergies Home Medications Medication Instructions Recorded Confirmed Type Albuterol Inhaler [Ventolin Hfa 2 puff INHALATION RT-Q4H 10/13/17 03/11/24 History Inhaler] Cyclobenzaprine [Flexeril] 10 mg PO BID 10/13/17 03/11/24 History Levothyroxine Sodium [Synthroid] 100 mcg PO DAILY 10/13/17 03/11/24 History Omeprazole [PriLOSEC] 40 mg PO DAILY 10/13/17 03/11/24 History Simvastatin [Zocor] 20 mg PO DAILY 10/13/17 03/11/24 History risperiDONE [RisperDAL] 2 mg PO HS 10/13/17 03/11/24 History Fluticasone Nasal [place] [Flonase 2 spr EA NOSTRIL DAILY 03/11/24 03/11/24 History Nasal [place]] Fluticasone Propion/Salmeterol 1 puff INHALATION RT-BID 03/11/24 03/11/24 History [Fluticasone-Salmeterol 250-50] carBAMazepine [carBAMazepine ER] 300 mg PO BID 03/11/24 03/11/24 History Allergies Allergy/AdvReac Type Severity Reaction Status Date / Time bacitracin Allergy Unknown Verified 03/11/24 11:55 [From Neosporin ([id number])] clarithromycin Allergy Unknown Verified 03/11/24 11:55 codeine Allergy Unknown Verified 03/11/24 11:55 diphenhydramine Allergy Unknown Verified 03/11/24 11:55 [From Benadryl] erythromycin base Allergy Unknown Verified 03/11/24 11:55 gentamicin Allergy Unknown Verified 03/11/24 11:55 Iodinated Contrast Media Allergy Unknown Verified 03/11/24 11:55 iodine Allergy Unknown Verified 03/11/24 11:55 iohexol [From Omnipaque] Allergy Unknown Verified 03/11/24 11:55 miconazole Allergy Unknown Verified 03/11/24 11:55 [From Neosporin AF] neomycin Allergy Unknown Verified 03/11/24 11:55 [From Neosporin ([id number])] polymyxin B Allergy Unknown Verified 03/11/24 11:55 [From Neosporin ([id number])] Penicillins AdvReac Nausea & Verified 03/11/24 11:55 Vomiting Surgical - Exam Vital Signs Temp Pulse Resp BP Pulse Ox 99.2 F 109 H 20 124/95 99 03/11/24 07:57 03/11/24 07:57 03/11/24 07:57 03/11/24 07:57 03/11/24 07:57 - General well developed, well nourished, moderate distress - Respiratory normal respiratory effort - Psychiatric oriented to time, oriented to person, oriented to place, speech is normal, memory intact Results - Labs 03/11/24 09:10 03/11/24 09:10 Abnormal Lab Results - Last 24 Hours (Table) 03/11/24 03/11/24 03/11/24 Range/Units 09:10 09:10 11:13 WBC 17.5 H (3.8-10.6) k/uL Neutrophils # 16.8 H (1.3-7.7) k/uL Lymphocytes # 0.3 L (1.0-4.8) k/uL Chloride 108 H (98-107) mmol/L BUN 20 H (7-17) mg/dL Creatinine 1.07 H (0.52-1.04) mg/dL Glucose 169 H (74-99) mg/dL AST 39 H (14-36) U/L Alkaline Phosphatase 129 H (38-126) U/L Urine Appearance Turbid H (Clear) Ur Specific [place] 1.043 H (1.001-1.035) Urine Protein 2+ H (Negative) Urine Glucose (UA) Trace H (Negative) Urine Ketones Trace H (Negative) Urine Blood Large H (Negative) Urine Nitrite Positive H (Negative) Ur Leukocyte Esterase Large H (Negative) Urine RBC >182 H (0-5) /hpf Urine WBC >182 H (0-5) /hpf Urine WBC Clumps Occasional H (None) /hpf Urine Mucus Few H (None) /hpf Diabetes panel 03/11/24 Range/Units 09:10 Sodium 139 (137-145) mmol/L Potassium 4.2 (3.5-5.1) mmol/L Chloride 108 H (98-107) mmol/L Carbon Dioxide 22 (22-30) mmol/L BUN 20 H (7-17) mg/dL Creatinine 1.07 H (0.52-1.04) mg/dL Glucose 169 H (74-99) mg/dL Calcium 9.2 (8.4-10.2) mg/dL AST 39 H (14-36) U/L ALT 34 (4-34) U/L Alkaline Phosphatase 129 H (38-126) U/L Total Protein 6.5 (6.3-8.2) g/dL Albumin 4.1 (3.5-5.0) g/dL Calcium panel 03/11/24 Range/Units 09:10 Calcium 9.2 (8.4-10.2) mg/dL Albumin 4.1 (3.5-5.0) g/dL Pituitary panel 03/11/24 Range/Units 09:10 Sodium 139 (137-145) mmol/L Potassium 4.2 (3.5-5.1) mmol/L Chloride 108 H (98-107) mmol/L Carbon Dioxide 22 (22-30) mmol/L BUN 20 H (7-17) mg/dL Creatinine 1.07 H (0.52-1.04) mg/dL Glucose 169 H (74-99) mg/dL Calcium 9.2 (8.4-10.2) mg/dL Adrenal panel 03/11/24 Range/Units 09:10 Sodium 139 (137-145) mmol/L Potassium 4.2 (3.5-5.1) mmol/L Chloride 108 H (98-107) mmol/L Carbon Dioxide 22 (22-30) mmol/L BUN 20 H (7-17) mg/dL Creatinine 1.07 H (0.52-1.04) mg/dL Glucose 169 H (74-99) mg/dL Calcium 9.2 (8.4-10.2) mg/dL Total Bilirubin 0.8 (0.2-1.3) mg/dL AST 39 H (14-36) U/L ALT 34 (4-34) U/L Alkaline Phosphatase 129 H (38-126) U/L Total Protein 6.5 (6.3-8.2) g/dL Albumin 4.1 (3.5-5.0) g/dL - Imaging CT scan - abdomen: image reviewed Assessment and Plan (1) Calculus of kidney Current Visit: Yes Status: Acute Code(s): N20.0 - CALCULUS OF KIDNEY SNOMED Code(s): 41185052 (2) Unspecified hydronephrosis Current Visit: Yes Status: Acute Code(s): N13.30 - UNSPECIFIED HYDRONEPHROSIS SNOMED Code(s): 67875712 Plan: Urinalysis is suggestive of infection, and my review of the CT scan suggests that she has an obstructing left distal ureteral calculus, along with a partial left staghorn renal calculus. Urine and blood cultures have been sent, and she has received ceftriaxone. I have suggested she undergo cystoscopy with left ureteral stent insertion. I explained the rationale for this to her, and the fact that the stent will need to be removed at a later date, at the time of kidney stone removal, after her infection has cleared. Time with Patient: Greater than 30
[2024-03-11] MEDS: IOPAMIDOL-370 100ML BTL MISCELLANE ONE (14:54)
--- NOTE | 2024-03-11 15:33 | P.OP ---
Date of Procedure: 03/11/24 Preoperative Diagnosis: Left hydronephrosis, left renal calculus Postoperative Diagnosis: Same Procedure(s) Performed: Cystoscopy, left retrograde pyelogram, left ureteral stent insertion Anesthesia: GETA Estimated Blood Loss (ml): 0 IV fluids (ml): 600 Pathology: none sent Condition: stable Disposition: PACU Indications for Procedure: The patient is a 63-year-old white female with schizophrenia. She is a poor historian. Apparently, she developed left flank pain yesterday and presented to [facility]. CT scan showed a partial staghorn calculus. She was transferred to [facility] for further care. My review of the CT scan shows delayed uptake and excretion of the left kidney, with a possible left distal ureteral calculus at the ureterovesical junction. Urinalysis is consistent with infection, and she has had a fever as high as 106 F in the ER. She denies any prior history of urolithiasis. Operative Findings: Retained contrast within the left ureter. No obvious left distal ureteral obstruction. Successful left ureteral stent insertion. Description of Procedure: The patient was taken to the operating room and placed in the dorsolithotomy position, with legs supported in Jonathan stirrups. The Lam catheter was removed. The external genitalia was prepped and draped sterilely. The 30 lens was used to introduce the 22-[place]inamese Stortz cystoscopic sheath through the urethra and into the bladder under direct vision. The bladder was examined in its entirety. Both ureteral orifices were of normal anatomic location and configuration. No tumors or foreign bodies were seen. Inflammation was seen at the bladder dome, presumably due to the recent Lam catheter. Fluoroscopy revealed retained contrast within the left ureter and left renal pelvis, down to the bladder. The left ureter appeared somewhat dilated, though there was only minimal left hydronephrosis. On the right side, there was no contrast within the collecting system. Using a 10 [place]amese cone-tip catheter, a left retrograde pyelogram was performed. Attention was paid to the left distal ureter, but no obvious calculus or obstruction was seen. A 0.035 inch Glidewire was passed through the cystoscope. The left ureteral orifice was cannulated, and the Glidewire was slowly advanced. Some resistance was met approximately 1- 2 cm proximal to the UVJ, but with some manipulation the Glidewire was advanced up to the renal pelvis. A 26 cm, 6-[place]inames[place] double-J ureteral stent was placed over the wire. Proper stent positioning was verified fluoroscopically and endoscopically. There was evidence of a "hydronephrotic morin", consistent with obstruction, with urine which was clear in appearance. The bladder was emptied and the cystoscope removed. The Lam catheter was replaced. The patient tolerated the procedure well and was taken to the recovery room in stable condition.
--- NOTE | 2024-03-11 15:36 | FL ---
EXAMINATION TYPE: FL urography retrograde DATE OF EXAM: 03/11/2024 FLUOROSCOPY fl time 10.6 dap [id number] cysto with stent placement with Dr. Hansen 3 images are submitted. [facility], , 03/11/2024 3:34 PM
[2024-03-11] MEDS: IPRATROPIUM-ALBUTEROL 3 ML NEB INHALATION STA (15:50)
[2024-03-11] MEDS ORDERED: ALBUTEROL NEBULIZED 2.5 MG/3 ML INHALATION SCH (16:00)
[2024-03-11] MEDS: CALCIUM GLUCONATE IN NACL 1 GM in SALINE 1 100ML.BAG IVPB ONE (16:18)
[2024-03-11 16:19] LABS: ABG HCO3 23 mmol/L (21-25); ABG Oxygen Saturation 97.1 % (94-97); ABG PCO2 46 mmHg (35-45); ABG PO2 88 mmHg (83-108); ABG TCO2 24 mmol/L (19-24); Allen Test Performed? Yes
[2024-03-11] MEDS: LACTATED RINGERS 1,000 ML IV STA (17:52)
[2024-03-11] MEDS: HEPARIN SODIUM,PORCINE 5,000 UNIT/ML 1 ML VIAL SQ SCH (17:52)
[2024-03-11 19:27] LABS: Carbamazepine (Tegretol) 7.3 UG/ML (4.0-12.0)
[2024-03-11] MEDS: SYMBICORT 80-4.5 MCG INHALER INHALATION SCH (19:32)
[2024-03-11] MEDS ORDERED: CYCLOBENZAPRINE 10 MG TAB PO SCH (21:00)
[2024-03-11] MEDS: carBAMazepine 300 MG CPMP.12HR PO SCH (21:28)
[2024-03-11] MEDS: risperiDONE 2 MG TAB PO SCH (21:28)
[2024-03-12] MEDS: ACETAMINOPHEN TAB 325 MG TAB PO PRN (03:37)
[2024-03-12] MEDS: PANTOPRAZOLE 40 MG TABLET PO SCH (06:09)
[2024-03-12] MEDS: LEVOTHYROXINE 100 MCG TAB PO SCH (06:09)
[2024-03-12 07:05] LABS: Basophils % (A) 0 %; Eosinophils # (A) 0.1 k/uL (0-0.7); Eosinophils % (A) 1 %; HCT 33.5 % (34.0-46.0); HGB 11.4 gm/dL (11.4-16.0); Lymphocytes % (A) 7 %; MCH 30.9 pg (25.0-35.0); MCHC 34.1 g/dL (31.0-37.0); MCV 90.8 fL (80.0-100.0); Mean Platelet Volume 7.1; Monocytes # (A) 0.5 k/uL (0-1.0); Monocytes % (A) 4 %; Neutrophils # (A) 11.3 k/uL (1.3-7.7); Neutrophils % (A) 87 %; Platelet Count 129 k/uL (150-450); RBC 3.69 m/uL (3.80-5.40); RDW 13.6 % (11.5-15.5)
[2024-03-12 07:29] LABS: ALT 28 U/L (4-34); AST 40 U/L (14-36); African American GFR (CKD) >90 (>60 ml/min/1.73 sqM); Albumin 2.6 g/dL (3.5-5.0); Alkaline Phosphatase 87 U/L (38-126); Anion Gap 6 mmol/L; Blood Urea Nitrogen 13 mg/dL (7-17); Calcium 7.8 mg/dL (8.4-10.2); Carbon Dioxide 22 mmol/L (22-30); Chloride 110 mmol/L (98-107); Glucose 90 mg/dL (74-99); Non-African American GFR(CKD) 85 (>60 ml/min/1.73 sqM); Potassium 3.5 mmol/L (3.5-5.1); Sodium 138 mmol/L (137-145); Total Bilirubin 0.3 mg/dL (0.2-1.3); Total Protein 4.8 g/dL (6.3-8.2)
[2024-03-12] MEDS: ATORVASTATIN 10 MG TAB PO SCH (08:25)
--- NOTE | 2024-03-12 09:25 | P.PN ---
Subjective Progress Note Date: 03/12/24 Principal diagnosis: UTI, left hydronephrosis, left renal calculi The patient is a 63-year-old white female who presented with a fever. Urinalysis was consistent with a UTI. CT scan showed mild left hydronephrosis, as well as large renal calculi which had the appearance of a partial staghorn calculus. She underwent cystoscopy with left ureteral stent insertion on March 11, 2024. At that time, retained contrast from the CT scan was seen throughout the entire left-sided collecting system. This morning, she is awake and alert and states that she is feeling much better. She continues to report suprapubic discomfort. Objective - Vital Signs Vital signs: Vital Signs Temp 98.3 F 03/12/24 03:34 Pulse 78 03/12/24 03:34 Resp 19 03/12/24 03:34 BP 115/67 03/12/24 03:34 Pulse Ox 94 L 03/12/24 03:34 FiO2 Intake & Output 03/11/24 03/12/24 03/12/24 18:59 06:59 18:59 Intake Total 2518 40 Output Total 400 600 Balance 2118 -560 Weight 124.738 kg 107.5 kg Intake: IV 2400 40 Invasive Line 1 20 Invasive Line 2 20 Oral 118 Output: Urine 400 600 Estimated Blood Loss 0 Other: Voiding Method Indwelling Catheter Indwelling Catheter - Constitutional General appearance: Present: average body habitus, cooperative, no acute distress - Gastrointestinal Gastrointestinal Comment(s): Soft, non-distended, no mass. Mild suprapubic tenderness, no guarding or rebound. - Genitourinary Genitourinary Comment(s): Lam catheter is draining clear yellow urine. - Psychiatric Psychiatric: Present: A&O x's 3 - Labs CBC & Chem 7: 03/12/24 06:42 03/12/24 06:42 Labs: Abnormal Lab Results - Last 24 Hours (Table) 03/11/24 03/11/24 03/11/24 Range/Units 09:10 09:10 11:13 WBC 17.5 H (3.8-10.6) k/uL RBC (3.80-5.40) m/uL Hct (34.0-46.0) % Plt Count (150-450) k/uL Neutrophils # 16.8 H (1.3-7.7) k/uL Lymphocytes # 0.3 L (1.0-4.8) k/uL ABG pH (7.35-7.45) ABG pCO2 (35-45) mmHg ABG O2 Saturation (94-97) % Chloride 108 H (98-107) mmol/L BUN 20 H (7-17) mg/dL Creatinine 1.07 H (0.52-1.04) mg/dL Glucose 169 H (74-99) mg/dL Plasma Lactic Acid Otto (0.7-2.0) mmol/L AST 39 H (14-36) U/L Alkaline Phosphatase 129 H (38-126) U/L Urine Appearance Turbid H (Clear) Ur Specific [place] 1.043 H (1.001-1.035) Urine Protein 2+ H (Negative) Urine Glucose (UA) Trace H (Negative) Urine Ketones Trace H (Negative) Urine Blood Large H (Negative) Urine Nitrite Positive H (Negative) Ur Leukocyte Esterase Large H (Negative) Urine RBC >182 H (0-5) /hpf Urine WBC >182 H (0-5) /hpf Urine WBC Clumps Occasional H (None) /hpf Urine Mucus Few H (None) /hpf 03/11/24 03/11/24 03/11/24 Range/Units 16:01 16:16 19:08 WBC (3.8-10.6) k/uL RBC (3.80-5.40) m/uL Hct (34.0-46.0) % Plt Count (150-450) k/uL Neutrophils # (1.3-7.7) k/uL Lymphocytes # (1.0-4.8) k/uL ABG pH 7.30 L (7.35-7.45) ABG pCO2 46 H (35-45) mmHg ABG O2 Saturation 97.1 H (94-97) % Chloride (98-107) mmol/L BUN (7-17) mg/dL Creatinine (0.52-1.04) mg/dL Glucose (74-99) mg/dL Plasma Lactic Acid Otto 3.1 H* 2.9 H* (0.7-2.0) mmol/L AST (14-36) U/L Alkaline Phosphatase (38-126) U/L Urine Appearance (Clear) Ur Specific [place] (1.001-1.035) Urine Protein (Negative) Urine Glucose (UA) (Negative) Urine Ketones (Negative) Urine Blood (Negative) Urine Nitrite (Negative) Ur Leukocyte Esterase (Negative) Urine RBC (0-5) /hpf Urine WBC (0-5) /hpf Urine WBC Clumps (None) /hpf Urine Mucus (None) /hpf 03/12/24 Range/Units 06:42 WBC 13.0 H (3.8-10.6) k/uL RBC 3.69 L (3.80-5.40) m/uL Hct 33.5 L (34.0-46.0) % Plt Count 129 L (150-450) k/uL Neutrophils # 11.3 H (1.3-7.7) k/uL Lymphocytes # (1.0-4.8) k/uL ABG pH (7.35-7.45) ABG pCO2 (35-45) mmHg ABG O2 Saturation (94-97) % Chloride (98-107) mmol/L BUN (7-17) mg/dL Creatinine (0.52-1.04) mg/dL Glucose (74-99) mg/dL Plasma Lactic Acid Otto (0.7-2.0) mmol/L AST (14-36) U/L Alkaline Phosphatase (38-126) U/L Urine Appearance (Clear) Ur Specific [place] (1.001-1.035) Urine Protein (Negative) Urine Glucose (UA) (Negative) Urine Ketones (Negative) Urine Blood (Negative) Urine Nitrite (Negative) Ur Leukocyte Esterase (Negative) Urine RBC (0-5) /hpf Urine WBC (0-5) /hpf Urine WBC Clumps (None) /hpf Urine Mucus (None) /hpf Microbiology - Last 24 Hours (Table) 03/11/24 09:10 Blood Culture Gram Stain - Preliminary Blood Blood Culture - Preliminary Molecular ID Assessment and Plan (1) Calculus of kidney Current Visit: Yes Status: Acute Code(s): N20.0 - CALCULUS OF KIDNEY SNOMED Code(s): 86644731 (2) Unspecified hydronephrosis Current Visit: Yes Status: Acute Code(s): N13.30 - UNSPECIFIED HYDRONEPHROSIS SNOMED Code(s): 59948489 Plan: Urinalysis is suggestive of infection, and my review of the CT scan suggested that she has an obstructing left distal ureteral calculus, along with a partial left staghorn renal calculus. At the time of stent placement, it was evident that there was distal ureteral obstruction, though a calculus was not seen. Urine and blood cultures were sent, and she is receiving ceftriaxone. I explained to her that she will require ureteroscopy once the infection has cleared, and that she has renal calculi which will need to be removed. If she is found to have a Proteus UTI, I will suggest she undergo a left percutaneous nephrolithotomy (PCNL). If it is any bacteria other than Proteus, she will be advised to undergo staged ureteroscopic procedures.
--- NOTE | 2024-03-12 12:28 | P.PN ---
Subjective Progress Note Date: 03/12/24 Principal diagnosis: Sepsis secondary to infected staghorn calculi Patient is a 63-year-old female with hyperlipidemia, asthma, GERD, hypothyroidism, seizures, and schizoaffective disorder who is a transfer from [facility] due to nephrolithiasis. Patient at time of interview was uncooperative and a poor historian. Per chart review, patient arrived in [facility] ED for left-sided flank pain that has been ongoing for months infrequently. She denied nausea, vomiting, chest pain, shortness of breath, hematuria, or dysuria. Today the pain occurred very acutely. While in the [facility] ED, she did began to develop left abdominal colicky pain that was 3 out of 10 in intensity and worsens with movement. Per ED RN, on arrival to our ED patient had intermittent confusion and was initially resistant to care, agitated and very diaphoretic. She also appeared to be short of breath. Imaging from [facility]: CT scan of the abdomen showed staghorn calculus with superior pole of the left kidney measuring up to 2 cm, and cholelithiasis. Labs from [facility], showed WBC elevated at 18.06 hemoglobin 14.7 platelet 227,000 neutrophils elevated at 89. Sodium 140 potassium 3.6 chloride 110 bicarb 23 glucose 156 which is elevated BUN 19.4 creatinine 0.94 AST 44 which is elevated ALT 39 that is elevated alk phos 145 which is elevated at lactic acid elevated at 2.5. TSH was normal at 2.32. Urinalysis at that time only had +3 blood VBG showed pH of 7.43 which is elevated pCO2 31 which is low and pO2 46.7 which is elevated Labs from [facility] ED: WBC 17.5 hemoglobin 14.3 platelet count 1 74,000 sodium 139 potassium 4.2 chloride 108 BUN 20 creatinine 1.07 glucose 169 AST 39 ALT 34 alk phos 129 amylase 40 lipase 32. Urinalysis was turbid in appearance +2 protein trace glucose trace ketones large blood positive for nitrites and leukocyte esterase, RBCs, WBCs. Patient was negative for influenza, RSV and SARS COV 2 Imaging and [facility] ED: Chest x-ray independently interpreted shows hypoaeration but with some congestion. KUB x-ray reported to have 7 mm stone in the left mid ureter and staghorn calculi in the left kidney measuring up to 1.3 cm. 03/12/2024 patient seen and examined at bedside. Patient noted to be awake and alert and cooperative today. No acute events overnight. WBC 13 hemoglobin 11 platelet count 1 29,000 BUN 13 creatinine 0.75 calcium 7.8 AST 40 ALT 28 ALP 87 albumin 2.6. Blood cultures showed positive for E. cloacae and Proteus Review of systems: Pertinent positives and negatives as discussed in HPI, a complete review of systems was performed and all other systems are negative. Pertinent imaging and labs reviewed. Physical examination: Vital signs reviewed General: non toxic, no distress, on room air Derm: no unusual rashes/lesions, warm Head: atraumatic, normocephalic, symmetric Eyes: EOMI, anicteric sclera, pupils equal round reactive to light ENT: Nose and ears atraumatic Neck: No cervical lymphadenopathy, trachea midline, supple Mouth: no lip lesion, mucus membranes moist Cardiovascular: S1S2 reg, no murmur Lungs: CTA bilateral, no rhonchi, no rales, no accessory muscle use Abdominal: soft, nontender to palpation, no guarding, suprapubic scar with lower umbilical deformity Ext: muscle strength 5 out of 5 in all 4 extremities grossly, no gross muscle atrophy, no contractures, positive dorsalis pedis pulse bilateral, no edema Neuro: CN II-XI grossly intact, no gross focal neuro deficits Psych: Alert and oriented x3, flat affect, with appropriate mood Assessment/Plan: 63-year-old female with history of schizoaffective disorder who is a transfer from [facility] due to nephrolithiasis and is here for urologic evaluation. #. Sepsis secondary to infected staghorn calculi, status post cystoscopy with left ureteral stent insertion, improving #. Enterobacter + Proteus bacteremia #. CARROLL, post renal, secondary to above, resolved #. Acute pyelonephritis secondary to above, improving POD 1 of cystoscopy, left retrograde pyelogram, left ureteral stent insertion Cardiac monitoring Now on regular diet Discontinue Rocephin 2 g IVPB (D2). Start cefepime 2 g IVPB every 8 hours ID consulted Continue with Tylenol 650 p.o. every 6 and ibuprofen 400 mg p.o. every 6 as needed for fever or pain IVF discontinued WBC decreasing now at 13 BUN now at 13, creatinine now 1.75 Urine cultures pending Blood cultures showed positive for E. cloacae and Proteus Lactic acid 1.5 CBC and CMP in the a.m. Urology consulted. Left percutaneous left lower lithotomy planned. #. Hypocalcemia likely secondary to hypoalbuminemia Serum calcium at 7.8. Albumin at 2.6. Corrected calcium is 8.9. Patient is h emodynamically stable and exhibiting no symptoms Will monitor for now #. Hyperglycemia, resolved Glucose today at 90 A1c 5.7 #. Elevated alkaline phosphatase, resolved ALP now at 87. Patient has no right upper quadrant pain. Chronic Conditions: #. Hyperlipidemia Continue simvastatin 20 mg p.o. #. Asthma Continue Ventolin inhaler #. Hypothyroidism Continue Synthroid 100 mcg p.o. daily #. Schizoaffective disorder #. History of seizures Seizure precautions Fall precautions On carbamazepine 300 mg every 12 hours, cyclobenzaprine 10 mg, and risperidone 2 mg p.o. daily Check carbamazepine levels Continue medications once reconciled #. GERD Continue omeprazole 40 mg p.o. daily F: Oral intake E: Replete as needed N: Regular diet A: Can self ambulate DVT ppx: Heparin subcu Joan Weaver MD PGY-1/Learning Design Specialist Dictation was produced using [employer] dictation software. please excuse any grammatical, word or spelling errors. I saw and evaluated the patient during the velasquez and critical portions of this encounter, and discussed the case in detail with the resident author of this note, I agree with the Assessment and Plan, and my changes, if any, are noted below or highlighted in blue. Objective - Vital Signs Vital signs: Vital Signs Temp 98.6 F 03/12/24 08:12 Pulse 86 03/12/24 08:12 Resp 18 03/12/24 08:12 BP 136/66 03/12/24 08:12 Pulse Ox 91 L 03/12/24 08:12 FiO2 Intake & Output 03/11/24 03/12/24 03/12/24 18:59 06:59 18:59 Intake Total 2518 40 20 Output Total 400 600 Balance 2118 -560 20 Weight 124.738 kg 107.5 kg Intake: IV 2400 40 20 Invasive Line 1 20 10 Invasive Line 2 20 10 Oral 118 Output: Urine 400 600 Estimated Blood Loss 0 Other: Voiding Method Indwelling Catheter Indwelling Catheter Indwelling Catheter - Labs CBC & Chem 7: 03/12/24 06:42 03/12/24 06:42 Labs: Abnormal Lab Results - Last 24 Hours (Table) 03/11/24 03/11/24 03/11/24 Range/Units 11:13 16:01 16:16 WBC (3.8-10.6) k/uL RBC (3.80-5.40) m/uL Hct (34.0-46.0) % Plt Count (150-450) k/uL Neutrophils # (1.3-7.7) k/uL ABG pH 7.30 L (7.35-7.45) ABG pCO2 46 H (35-45) mmHg ABG O2 Saturation 97.1 H (94-97) % Chloride (98-107) mmol/L Plasma Lactic Acid Otto 3.1 H* (0.7-2.0) mmol/L Calcium (8.4-10.2) mg/dL AST (14-36) U/L Total Protein (6.3-8.2) g/dL Albumin (3.5-5.0) g/dL Urine Appearance Turbid H (Clear) Ur Specific [place] 1.043 H (1.001-1.035) Urine Protein 2+ H (Negative) Urine Glucose (UA) Trace H (Negative) Urine Ketones Trace H (Negative) Urine Blood Large H (Negative) Urine Nitrite Positive H (Negative) Ur Leukocyte Esterase Large H (Negative) Urine RBC >182 H (0-5) /hpf Urine WBC >182 H (0-5) /hpf Urine WBC Clumps Occasional H (None) /hpf Urine Mucus Few H (None) /hpf 03/11/24 03/12/24 03/12/24 Range/Units 19:08 06:42 06:42 WBC 13.0 H (3.8-10.6) k/uL RBC 3.69 L (3.80-5.40) m/uL Hct 33.5 L (34.0-46.0) % Plt Count 129 L (150-450) k/uL Neutrophils # 11.3 H (1.3-7.7) k/uL ABG pH (7.35-7.45) ABG pCO2 (35-45) mmHg ABG O2 Saturation (94-97) % Chloride 110 H (98-107) mmol/L Plasma Lactic Acid Otto 2.9 H* (0.7-2.0) mmol/L Calcium 7.8 L (8.4-10.2) mg/dL AST 40 H (14-36) U/L Total Protein 4.8 L (6.3-8.2) g/dL Albumin 2.6 L (3.5-5.0) g/dL Urine Appearance (Clear) Ur Specific [place] (1.001-1.035) Urine Protein (Negative) Urine Glucose (UA) (Negative) Urine Ketones (Negative) Urine Blood (Negative) Urine Nitrite (Negative) Ur Leukocyte Esterase (Negative) Urine RBC (0-5) /hpf Urine WBC (0-5) /hpf Urine WBC Clumps (None) /hpf Urine Mucus (None) /hpf Microbiology - Last 24 Hours (Table) 03/11/24 09:10 Blood Culture Gram Stain - Preliminary Blood Blood Culture - Preliminary Molecular ID
[2024-03-12] MEDS: POTASSIUM CHLORIDE ER 10 MEQ TAB.ER.PRT PO STA (14:46)
[2024-03-12] MEDS: CEFEPIME 2 GM in SODIUM CHLORIDE 0.9% 100 ML IVPB SCH (17:46)
--- NOTE | 2024-03-12 22:43 | P.CONS ---
History of Present Illness - Reason for Consult Consult date: 03/12/24 Bacteremia Requesting physician: Catalino Newsome - Chief Complaint Left-sided abdominal pain x few days - History of Present Illness Patient is a 63-year-old female with a past medical history significant for asthma endometrial and ovarian cancer, hyperlipidemia osteoarthritis and seizure disorder presenting to the hospital for evaluation left-sided flank pain that the pain has been going on for a while with acute worsening pain was described to be sharp moderate intensity without radiation did have some nausea but no vomiting and no diarrhea on presentation to the hospital patient did have a low-grade fever of 99 point subsequently patient did spike a fever of 103.2 F patient was tachycardic but not hypotensive mildly hypoxic on 2 L nasal cannula oxygen patient did have a white count of 17.5 with a left shift BUN/creatinine was mildly elevated initially subsequently improved AST is mildly elevated did have significantly positive UA influenza RSV COVID testing are negative patient did have a CT angiogram of the chest bilateral lower lobe subsegmental atelectasis 9 diagnostic for PE did not mention any consolidation patient did have a cystoscopy with left retrograde pyelogram and left ureteral stent insertion patient did have blood and urine cultures came positive with gram-negative bacilli patient is being treated with cefepime infectious disease was consulted for further management of antibiotic therapy Review of Systems Positive points has been mentioned in HPI complete review could not be obtained because of his underlying mental status Past Medical History Past Medical History: Asthma, Cancer, GERD/Reflux, Hyperlipidemia, Osteoarthritis (OA), Seizure Disorder, Thyroid Disorder Additional Past Medical History / Comment(s): Hypothyroidism. 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 History of Any Multi-Drug Resistant Organisms: None Reported Past Surgical History: Hysterectomy, Tonsillectomy Additional Past Surgical History / Comment(s): [place] 1995, BSO in 2000. D&C, eye surgery, colonoscopy 2012(next after 5yr). Past Psychological History: ADD/ADHD, Bipolar, Schizoaffective Disorder Additional Psychological History / Comment(s): Autism Smoking Status: Never smoker Past Alcohol Use History: None Reported Past Drug Use History: None Reported - Past Family History Father Family Medical History: Cancer, COPD, Hyperlipidemia, Hypertension Additional Family Medical History / Comment(s): Colon cancer. Macular degenera tion. Mother Family Medical History: Hyperlipidemia, Hypertension Medications and Allergies Home Medications Medication Instructions Recorded Confirmed Type Albuterol Inhaler [Ventolin Hfa 2 puff INHALATION RT-Q4H 10/13/17 03/11/24 History Inhaler] Cyclobenzaprine [Flexeril] 10 mg PO BID 10/13/17 03/11/24 History Levothyroxine Sodium [Synthroid] 100 mcg PO DAILY 10/13/17 03/11/24 History Omeprazole [PriLOSEC] 40 mg PO DAILY 10/13/17 03/11/24 History Simvastatin [Zocor] 20 mg PO DAILY 10/13/17 03/11/24 History risperiDONE [RisperDAL] 2 mg PO HS 10/13/17 03/11/24 History Fluticasone Nasal [place] [Flonase 2 spr EA NOSTRIL DAILY 03/11/24 03/11/24 History Nasal [place]] Fluticasone Propion/Salmeterol 1 puff INHALATION RT-BID 03/11/24 03/11/24 History [Fluticasone-Salmeterol 250-50] carBAMazepine [carBAMazepine ER] 300 mg PO BID 03/11/24 03/11/24 History Allergies Allergy/AdvReac Type Severity Reaction Status Date / Time bacitracin Allergy Unknown Verified 03/11/24 11:55 [From Neosporin ([id number])] clarithromycin Allergy Unknown Verified 03/11/24 11:55 codeine Allergy Unknown Verified 03/11/24 11:55 diphenhydramine Allergy Unknown Verified 03/11/24 11:55 [From Benadryl] erythromycin base Allergy Unknown Verified 03/11/24 11:55 gentamicin Allergy Unknown Verified 03/11/24 11:55 Iodinated Contrast Media Allergy Unknown Verified 03/11/24 11:55 iodine Allergy Unknown Verified 03/11/24 11:55 iohexol [From Omnipaque] Allergy Unknown Verified 03/11/24 11:55 miconazole Allergy Unknown Verified 03/11/24 11:55 [From Neosporin AF] neomycin Allergy Unknown Verified 03/11/24 11:55 [From Neosporin ([id number])] polymyxin B Allergy Unknown Verified 03/11/24 11:55 [From Neosporin ([id number])] Penicillins AdvReac Nausea & Verified 03/11/24 11:55 Vomiting Physical Exam Vitals: Vital Signs Temp Pulse Pulse Resp BP BP Pulse Ox 03/12/24 08:12 98.6 F 86 18 136/66 91 L 03/12/24 03:34 98.3 F 78 19 115/67 94 L 03/11/24 23:22 97.7 F 79 18 112/68 95 03/11/24 20:00 97.7 F 83 20 110/76 96 03/11/24 18:59 97.4 F L 03/11/24 17:49 97.6 F 91 22 128/67 92 L 03/11/24 17:00 92 25 H 125/73 97 03/11/24 16:31 92 18 119/74 91 L 03/11/24 16:16 94 22 109/69 97 03/11/24 16:01 96 25 H 108/70 96 03/11/24 15:46 96 25 H 111/69 96 03/11/24 15:31 96 25 H 133/77 96 03/11/24 15:16 99.0 F 106 H 16 149/65 93 L 03/11/24 14:20 101.7 F H 103 H 36 H 142/78 94 L 03/11/24 13:53 100.6 F H 101 H 20 124/61 03/11/24 13:03 102.4 F H 03/11/24 11:39 103.6 F H 105 H 32 H 131/98 96 Intake and Output 03/11/24 03/12/24 03/12/24 22:59 06:59 14:59 Intake Total 1238 20 138 Output Total 800 200 700 Balance 438 -180 -562 Intake: IV 1120 20 20 Invasive Line 1 10 10 10 Invasive Line 2 10 10 10 Oral 118 118 Output: Urine 800 200 700 Estimated Blood Loss 0 Other: Voiding Method Indwelling Catheter Indwelling Catheter Indwelling Catheter Weight 124.738 kg 107.5 kg GENERAL DESCRIPTION: Middle-aged female lying in bed, no distress. No tachypnea or accessory muscle of respiration use. HEENT: Shows Pallor , no scleral icterus. Oral mucous membrane is dry. NECK: Trachea central, no thyromegaly. LUNGS: Unlabored breathing. Clear to auscultation anteriorly. No wheeze or crackle. HEART: S1, S2, regular rate and rhythm. No loud murmur ABDOMEN: Soft, no tenderness , EXTREMITIES: No edema of feet. SKIN: No rash, no masses palpable. NEUROLOGICAL: The patient is awake, alert, mood and affect normal. Results CBC & Chem 7: 03/12/24 06:42 03/12/24 06:42 Labs: Abnormal Lab Results - Last 24 Hours (Table) 03/11/24 03/11/24 03/11/24 Range/Units 11:13 16:01 16:16 WBC (3.8-10.6) k/uL RBC (3.80-5.40) m/uL Hct (34.0-46.0) % Plt Count (150-450) k/uL Neutrophils # (1.3-7.7) k/uL ABG pH 7.30 L (7.35-7.45) ABG pCO2 46 H (35-45) mmHg ABG O2 Saturation 97.1 H (94-97) % Chloride (98-107) mmol/L Plasma Lactic Acid Otto 3.1 H* (0.7-2.0) mmol/L Calcium (8.4-10.2) mg/dL AST (14-36) U/L Total Protein (6.3-8.2) g/dL Albumin (3.5-5.0) g/dL Urine Appearance Turbid H (Clear) Ur Specific [place] 1.043 H (1.001-1.035) Urine Protein 2+ H (Negative) Urine Glucose (UA) Trace H (Negative) Urine Ketones Trace H (Negative) Urine Blood Large H (Negative) Urine Nitrite Positive H (Negative) Ur Leukocyte Esterase Large H (Negative) Urine RBC >182 H (0-5) /hpf Urine WBC >182 H (0-5) /hpf Urine WBC Clumps Occasional H (None) /hpf Urine Mucus Few H (None) /hpf 03/11/24 03/12/24 03/12/24 Range/Units 19:08 06:42 06:42 WBC 13.0 H (3.8-10.6) k/uL RBC 3.69 L (3.80-5.40) m/uL Hct 33.5 L (34.0-46.0) % Plt Count 129 L (150-450) k/uL Neutrophils # 11.3 H (1.3-7.7) k/uL ABG pH (7.35-7.45) ABG pCO2 (35-45) mmHg ABG O2 Saturation (94-97) % Chloride 110 H (98-107) mmol/L Plasma Lactic Acid Otto 2.9 H* (0.7-2.0) mmol/L Calcium 7.8 L (8.4-10.2) mg/dL AST 40 H (14-36) U/L Total Protein 4.8 L (6.3-8.2) g/dL Albumin 2.6 L (3.5-5.0) g/dL Urine Appearance (Clear) Ur Specific [place] (1.001-1.035) Urine Protein (Negative) Urine Glucose (UA) (Negative) Urine Ketones (Negative) Urine Blood (Negative) Urine Nitrite (Negative) Ur Leukocyte Esterase (Negative) Urine RBC (0-5) /hpf Urine WBC (0-5) /hpf Urine WBC Clumps (None) /hpf Urine Mucus (None) /hpf Microbiology - Last 24 Hours (Table) 03/11/24 09:10 Blood Culture Gram Stain - Preliminary Blood Blood Culture - Preliminary Molecular ID Assessment and Plan (1) Sepsis Current Visit: Yes Status: Acute Code(s): A41.9 - SEPSIS, UNSPECIFIED ORGANISM SNOMED Code(s): 99447950 (2) Allergy to multiple antibiotics Current Visit: Yes Status: Acute Code(s): Z88.1 - ALLERGY STATUS TO OTHER ANTIBIOTIC AGENTS SNOMED Code(s): 576956714 (3) Urinary tract infection Current Visit: Yes Status: Acute Code(s): N39.0 - URINARY TRACT INFECTION, SITE NOT SPECIFIED SNOMED Code(s): 52997219 Plan: 1patient presented to hospital with sepsis in this patient who did have fever tachycardia elevated white count meeting criteria for SIRS source is a complicated UTI in this patient with a left ureteral stone causing left-sided hydronephrosis this patient who is status post cystoscopy and left ureteral stent placement [id number] bacteremia source is likely complicated UTI 3-patient with multiple antibiotic ALLERGIES that would limit the number of antibiotic safe to use 4-patient will be treated with cefepime 2 g Q8 hourly while waiting for the sensitivities finalize We will follow on clinical condition and cultures to further adjust medication if needed Thank you for this consultation we will follow the patient along with you Dictation was produced using dragon dictation software. please excuse any grammatical, word or spelling errors. Time with Patient: Greater than 30
[2024-03-13 09:16] LABS: Basophils # (A) 0.04 X 10*3/uL (0.00-0.10); Basophils % (A) 0.4 %; Eosinophils # (A) 0.15 X 10*3/uL (0.04-0.35); Eosinophils % (A) 1.6 %; HCT 34.1 % (37.2-46.3); HGB 11.3 g/dL (12.0-15.0); Lymphocytes # (A) 0.87 X 10*3/uL (0.90-5.00); Lymphocytes % (A) 9.4 %; MCH 29.9 pg (27.0-32.0); MCHC 33.1 g/dL (32.0-37.0); MCV 90.2 FL (80.0-97.0); Mean Platelet Volume 9.6 FL (9.5-12.2); Monocytes # (A) 0.48 X 10*3/uL (0.20-1.00); Monocytes % (A) 5.2 %; NRBC Per 100 WBC 0 X 10*3/uL (0.00-0.01); Neutrophils # (A) 7.64 X 10*3/uL (1.80-7.70); Neutrophils % (A) 82.8 %; Platelet Count 129 X 10*3/uL (140-440); RBC 3.78 X 10*6/uL (4.10-5.20); RDW 13.1 % (11.5-14.5); WBC 9.24 X 10*3/uL (4.50-10.00)
[2024-03-13 10:43] LABS: BUN/Creat Ratio 15.86 Ratio (12.00-20.00); Blood Urea Nitrogen 11.1 mg/dL (9.0-27.0); Calcium 7.9 mg/dL (8.7-10.3); Chloride 110 mmol/L (96-109); Glucose 119 mg/dL (70-110); Potassium 3.7 mmol/L (3.5-5.5); Sodium 142 mmol/L (135-145)
--- NOTE | 2024-03-13 11:08 | P.PN ---
Subjective Progress Note Date: 03/13/24 Principal diagnosis: UTI, left hydronephrosis, left renal calculi The patient is a 63-year-old white female who presented with a fever. Urinalysis was consistent with a UTI. CT scan showed mild left hydronephrosis, as well as large renal calculi which had the appearance of a partial staghorn calculus. She underwent cystoscopy with left ureteral stent insertion on March 11, 2024. At that time, retained contrast from the CT scan was seen throughout the entire left-sided collecting system. She is now feeling much better. She denies pain. She reports minimal dysuria and denies hematuria. Objective - Vital Signs Vital signs: Vital Signs Temp 98.9 F 03/13/24 07:36 Pulse 86 03/13/24 07:36 Resp 17 03/13/24 07:36 BP 141/81 03/13/24 07:36 Pulse Ox 94 L 03/13/24 07:36 FiO2 Intake & Output 03/12/24 03/13/24 03/13/24 18:59 06:59 18:59 Intake Total 138 222 240 Output Total 1600 1625 Balance -1462 -1403 240 Intake: IV 20 Invasive Line 1 10 Invasive Line 2 10 Oral 118 222 240 Output: Urine 1600 1625 Other: Voiding Method Indwelling Catheter Indwelling Catheter Indwelling Catheter - Constitutional General appearance: Present: average body habitus, cooperative, no acute distress - Psychiatric Psychiatric: Present: A&O x's 3 - Labs CBC & Chem 7: 03/13/24 03:21 03/13/24 03:21 Labs: Abnormal Lab Results - Last 24 Hours (Table) 03/13/24 03/13/24 Range/Units 03:21 03:21 RBC 3.78 L (4.10-5.20) X 10*6/uL Hgb 11.3 L (12.0-15.0) g/dL Hct 34.1 L (37.2-46.3) % Plt Count 129 L (140-440) X 10*3/uL Immature Gran # 0.06 H (0.00-0.04) X 10*3/uL Lymphocytes # 0.87 L (0.90-5.00) X 10*3/uL Chloride 110 H (96-109) mmol/L Glucose 119 H (70-110) mg/dL Calcium 7.9 L (8.7-10.3) mg/dL Microbiology - Last 24 Hours (Table) 03/11/24 09:10 Blood Culture Gram Stain - Preliminary Blood Blood Culture - Preliminary Enterobacter cloacae Complex Proteus mirabilis Molecular ID 03/11/24 11:13 Urine Culture - Preliminary Urine,Voided Gram Neg Bacilli Assessment and Plan Assessment: Preliminary urine culture shows 50-100,000 gram-negative bacilli. Preliminary blood cultures show Proteus mirabilis and Enterobacter cloacae. (1) Calculus of kidney Current Visit: Yes Status: Acute Code(s): N20.0 - CALCULUS OF KIDNEY SNOMED Code(s): 30596716 (2) Unspecified hydronephrosis Current Visit: Yes Status: Acute Code(s): N13.30 - UNSPECIFIED HYDRONEPHROSIS SNOMED Code(s): 12928035 Plan: - Continue cefepime. Await final culture results. - At the time of stent placement, it was evident that there was distal ureteral obstruction, though a calculus was not seen. If the urine culture shows Proteus, she will be advised to undergo a left percutaneous nephrolithotomy (PCNL) to remove her left renal calculi, which would be presumed to be of struvite composition. If it is any bacteria other than Proteus, she will be advised to undergo staged ureteroscopic procedures.
--- NOTE | 2024-03-13 12:41 | P.PN ---
Subjective Progress Note Date: 03/13/24 63-year-old female with hyperlipidemia, asthma, GERD, hypothyroidism, seizures, and schizoaffective disorder who is a transfer from [facility] due to nephrolithiasis. CT AP at [place] showed staghorn calculus with superior pole of the left kidney measuring up to 2 cm, and cholelithiasis. Vital signs at [facility] BP 124/95, HR 109, RR 20, Tmax 106.3F, 99% on 2L NC. CBC, CMP significant for WBC 17.5, Cl 108, BUN 20, Cr 1.07, glu 169, AST 39, alk phos 129. Lactic acid 2.9-1.5. UA large LE + nitrite. COVID, RSV, Flu neg. CTA chest showed bilateral atelectasis and hepatic steatosis. She was started on Rocephin. Due to the toxic nature of this patient and persistent fevers, Urology was consulted, underwent cystoscopy, left retrograde pyelogram, left ureteral stent insertion with Dr. Hansen on 03/11. Blood culture grew Enterobacter and Proteus, antibiotics switched to Cefepime. 03/13 Patient was seen and examined. Feeling well. CBC RBC 3.78, Hg 11.3, Hct 34.1, Plt 129. BMP Cl 110, glu 119, Ca 7.9. UCx GNB. Urology recommends left percutaneous nephrolithotomy (PCNL) if UCx + proteus and staged ureteroscopic procedure if a different bacteria is identified. General: non toxic, no distress, appears at stated age Derm: warm, dry Head: atraumatic, normocephalic, symmetric Eyes: EOMI, no lid lag, anicteric sclera Mouth: no lip lesion, mucus membranes moist Cardiovascular: S1S2 reg, no murmur Lungs: CTA bilateral, no rhonchi, no rales , no accessory muscle use Ext: no gross muscle atrophy, no edema, no contractures Neuro: no focal neuro deficits Psych: Alert, oriented, appropriate affect Based on my assessment of this patient, this patient meets a high complexity level of care. Sepsis secondary to infected staghorn calculi: Status post cystoscopy with left ureteral stent insertion. Urology recommends left percutaneous nephrolithotomy (PCNL) if UCx + proteus and staged ureteroscopic procedure if a different bacteria is identified. Enterobacter + Proteus bacteremia: Continue Cefepime 2g IV TID (D2). Telemetry monitoring. ID on board. Hyperlipidemia: Lipitor 10 mg PO QD. Asthma: Albuterol neb QID PRN. Symbicort 2 INH BID. Hypothyroidism: Synthroid 100 mcg PO QD. Schizoaffective disorder: Carbamazepine 300 mg PO BID. Risperdal 2 mg PO QHS. History of seizures GERD: Protonix 40 mg PO QD. Resolved: Obstructive uropathy CODE STATUS: FULL CODE DVT Prophylaxis: Heparin SQ GI Prophylaxis: Protonix PO Designated medical POA if patient is not able to make medical decisions for themselves: I have reviewed the following b2b sales consultant notes: Urology, ID note. I have reviewed the results of the following tests: CBC. UCx. BCx. BMP. I have ordered the following tests: I have discussed the care of this patient with the following independent historian: I have independently interpreted the following test below: I have discussed the management of this patient with the following physician: Objective - Vital Signs Vital signs: Vital Signs Temp 98.9 F 03/13/24 07:36 Pulse 86 03/13/24 07:36 Resp 17 03/13/24 07:36 BP 141/81 03/13/24 07:36 Pulse Ox 94 L 03/13/24 07:36 FiO2 Intake & Output 03/12/24 03/13/24 03/13/24 18:59 06:59 18:59 Intake Total 138 222 240 Output Total 1600 1625 Balance -1462 -1403 240 Intake: IV 20 Invasive Line 1 10 Invasive Line 2 10 Oral 118 222 240 Output: Urine 1600 1625 Other: Voiding Method Indwelling Catheter Indwelling Catheter - Labs CBC & Chem 7: 03/13/24 03:21 03/13/24 03:21 Labs: Abnormal Lab Results - Last 24 Hours (Table) 03/13/24 Range/Units 03:21 RBC 3.78 L (4.10-5.20) X 10*6/uL Hgb 11.3 L (12.0-15.0) g/dL Hct 34.1 L (37.2-46.3) % Plt Count 129 L (140-440) X 10*3/uL Immature Gran # 0.06 H (0.00-0.04) X 10*3/uL Lymphocytes # 0.87 L (0.90-5.00) X 10*3/uL Microbiology - Last 24 Hours (Table) 03/11/24 11:13 Urine Culture - Preliminary Urine,Voided Gram Neg Bacilli
--- NOTE | 2024-03-14 08:12 | XR ---
EXAMINATION TYPE: XR chest 2V DATE OF EXAM: 03/14/2024 8:07 AM COMPARISON: 03/11/2024 CLINICAL INDICATION: Female, 63 years old with history of hypoxia, TECHNIQUE: XR chest 2V view(s) obtained. FINDINGS: The heart size is normal. The pulmonary vasculature is normal. Minimal linear atelectasis at the left diaphragm. Lungs otherwise are clear IMPRESSION: 1. Minimal platelike atelectasis left lung base [facility], , 03/14/2024 8:10 AM
[2024-03-14 08:40] LABS: BUN/Creat Ratio 15.86 Ratio (12.00-20.00); Blood Urea Nitrogen 11.1 mg/dL (9.0-27.0); Calcium 8.4 mg/dL (8.7-10.3); Carbon Dioxide 23.3 mmol/L (21.6-31.8); Chloride 105 mmol/L (96-109); Glucose 106 mg/dL (70-110); Potassium 3.6 mmol/L (3.5-5.5); Sodium 139 mmol/L (135-145)
--- NOTE | 2024-03-14 08:54 | P.PN ---
Subjective Progress Note Date: 03/13/24 Principal diagnosis: Reason for follow-up is complicated UTI and bacteremia Patient is a 63-year-old female with a past medical history significant for asthma endometrial and ovarian cancer, hyperlipidemia osteoarthritis and seizure disorder presenting to the hospital for evaluation left-sided flank pain, patient has been diagnosed with sepsis secondary to complicated UTI in this patient who did have a left-sided hydronephrosis requiring cystoscopy and left ureteral stent placement blood culture positive for Enterobacter. On today's evaluation that is 03/13/2024, Patient is afebrile patient is currently on 2 L nasal cannula oxygen and denies having any shortness of breath, the patient denies any chest pain or cough, the patient denies any nausea vomiting left-sided abdominal pain decreased in intensity. Patient white count normalized to 9.24, creatinine 0.7 blood and urine with gram-negative Objective - Vital Signs Vital signs: Vital Signs Temp 98.9 F 03/13/24 07:36 Pulse 86 03/13/24 07:36 Resp 17 03/13/24 07:36 BP 141/81 03/13/24 07:36 Pulse Ox 94 L 03/13/24 07:36 FiO2 Intake & Output 03/12/24 03/13/24 03/13/24 18:59 06:59 18:59 Intake Total 138 222 240 Output Total 1600 1625 Balance -1462 -1403 240 Intake: IV 20 Invasive Line 1 10 Invasive Line 2 10 Oral 118 222 240 Output: Urine 1600 1625 Other: Voiding Method Indwelling Catheter Indwelling Catheter - Exam GENERAL DESCRIPTION: Middle-age female lying in bed in no distress RESPIRATORY SYSTEM: Unlabored breathing , decreased breath sounds at bases HEART: S1 S2 regular rate and rhythm , ABDOMEN: Soft , no tenderness EXTREMITIES: No edema feet - Labs CBC & Chem 7: 03/13/24 03:21 03/14/24 04:56 Labs: Abnormal Lab Results - Last 24 Hours (Table) 03/13/24 Range/Units 03:21 RBC 3.78 L (4.10-5.20) X 10*6/uL Hgb 11.3 L (12.0-15.0) g/dL Hct 34.1 L (37.2-46.3) % Plt Count 129 L (140-440) X 10*3/uL Immature Gran # 0.06 H (0.00-0.04) X 10*3/uL Lymphocytes # 0.87 L (0.90-5.00) X 10*3/uL Microbiology - Last 24 Hours (Table) 03/11/24 09:10 Blood Culture Gram Stain - Preliminary Blood Blood Culture - Preliminary Enterobacter cloacae Complex Proteus mirabilis Molecular ID 03/11/24 11:13 Urine Culture - Preliminary Urine,Voided Gram Neg Bacilli Assessment and Plan (1) Sepsis Current Visit: Yes Status: Acute Code(s): A41.9 - SEPSIS, UNSPECIFIED ORGANISM SNOMED Code(s): 29045575 (2) Allergy to multiple antibiotics Current Visit: Yes Status: Acute Code(s): Z88.1 - ALLERGY STATUS TO OTHER ANTIBIOTIC AGENTS SNOMED Code(s): 639737654 (3) Urinary tract infection Current Visit: Yes Status: Acute Code(s): N39.0 - URINARY TRACT INFECTION, SITE NOT SPECIFIED SNOMED Code(s): 31432210 Plan: 1patient presented to hospital with sepsis in this patient who did have fever tachycardia elevated white count meeting criteria for SIRS source is a complicated UTI in this patient with a left ureteral stone causing left-sided hydronephrosis this patient who is status post cystoscopy and left ureteral stent placement [id number] bacteremia source is likely complicated UTI 3-patient with multiple antibiotic ALLERGIES that would limit the number of antibiotic safe to use 4-patient will be treated with cefepime 2 g Q8 hourly while waiting for the sensitivities finalize to determine her discharge antibiotics Dictation was produced using [employer] dictation software. please excuse any grammatical, word or spelling errors. Time with Patient: Less than 30
[2024-03-14 09:03] LABS: Basophils # (A) 0.05 X 10*3/uL (0.00-0.10); Basophils % (A) 0.7 %; Eosinophils # (A) 0.14 X 10*3/uL (0.04-0.35); HCT 35.3 % (37.2-46.3); HGB 11.9 g/dL (12.0-15.0); Lymphocytes % (A) 13.9 %; MCH 29.7 pg (27.0-32.0); MCHC 33.7 g/dL (32.0-37.0); Mean Platelet Volume 9.6 FL (9.5-12.2); Monocytes # (A) 0.46 X 10*3/uL (0.20-1.00); Monocytes % (A) 6.4 %; NRBC Per 100 WBC 0 X 10*3/uL (0.00-0.01); Neutrophils # (A) 5.43 X 10*3/uL (1.80-7.70); Neutrophils % (A) 75.7 %; Platelet Count 159 X 10*3/uL (140-440); RBC 4.01 X 10*6/uL (4.10-5.20); RDW 12.7 % (11.5-14.5); WBC 7.17 X 10*3/uL (4.50-10.00)
--- NOTE | 2024-03-14 13:36 | XR ---
EXAMINATION TYPE: XR KUB DATE OF EXAM: 03/14/2024 12:05 PM COMPARISON: None. CLINICAL INDICATION: Female, 63 years old with history of abd pain, TECHNIQUE: XR KUB view(s) obtained. FINDINGS: There is a normal bowel gas pattern. Psoas margins are normal. No organomegaly is present. Ureteral stent is present on the left. Largest left renal calcification is present measuring 2.7 x 2. 0 cm. IMPRESSION: 1. Left renal staghorn calculus [facility], , 03/14/2024 1:33 PM
--- NOTE | 2024-03-14 13:50 | P.PN ---
Subjective Progress Note Date: 03/14/24 Principal diagnosis: Sepsis secondary to infected staghorn calculi Patient is a 63-year-old female with hyperlipidemia, asthma, GERD, hypothyroidism, seizures, and schizoaffective disorder who is a transfer from [place] due to nephrolithiasis. Patient at time of interview was uncooperative and a poor historian. Per chart review, patient arrived in [place] ED for left-sided flank pain that has been ongoing for months infrequently. She denied nausea, vomiting, chest pain, shortness of breath, hematuria, or dysuria. Today the pain occurred very acutely. While in the [facility] ED, she did began to develop left abdominal colicky pain that was 3 out of 10 in intensity and worsens with movement. Per ED RN, on arrival to our ED patient had intermittent confusion and was initially resistant to care, agitated and very diaphoretic. She also appeared to be short of breath. Imaging from [facility]: CT scan of the abdomen showed staghorn calculus with superior pole of the left kidney measuring up to 2 cm, and cholelithiasis. Labs from [facility], showed WBC elevated at 18.06 hemoglobin 14.7 platelet 227,000 neutrophils elevated at 89. Sodium 140 potassium 3.6 chloride 110 bicarb 23 glucose 156 which is elevated BUN 19.4 creatinine 0.94 AST 44 which is elevated ALT 39 that is elevated alk phos 145 which is elevated at lactic acid elevated at 2.5. TSH was normal at 2.32. Urinalysis at that time only had +3 blood VBG showed pH of 7.43 which is elevated pCO2 31 which is low and pO2 46.7 which is elevated Labs from [facility] ED: WBC 17.5 hemoglobin 14.3 platelet count 1 74,000 sodium 139 potassium 4.2 chloride 108 BUN 20 creatinine 1.07 glucose 169 AST 39 ALT 34 alk phos 129 amylase 40 lipase 32. Urinalysis was turbid in appearance +2 protein trace glucose trace ketones large blood positive for nitrites and leukocyte esterase, RBCs, WBCs. Patient was negative for influenza, RSV and SARS COV 2 Imaging and [facility] ED: Chest x-ray independently interpreted shows hypoaeration but with some congestion. KUB x-ray reported to have 7 mm stone in the left mid ureter and staghorn calculi in the left kidney measuring up to 1.3 cm. 03/12/2024 patient seen and examined at bedside. Patient noted to be awake and alert and cooperative today. No acute events overnight. WBC 13 hemoglobin 11 platelet count 1 29,000 BUN 13 creatinine 0.75 calcium 7.8 AST 40 ALT 28 ALP 87 albumin 2.6. Blood cultures showed positive for E. cloacae and Proteus 03/13 Patient was seen and examined. Feeling well. CBC RBC 3.78, Hg 11.3, Hct 34.1, Plt 129. BMP Cl 110, glu 119, Ca 7.9. UCx GNB. Urology recommends left percutaneous nephrolithotomy (PCNL) if UCx + proteus and staged ureteroscopic procedure if a different bacteria is identified. 03/14/2024 patient seen and examined at bedside. No new complaints overnight. Reported to have not had a bowel movement since admission. tenderness on light palpation of LUQ. WBC 7.17 hemoglobin 11.9 platelet count 1 59,000 BUN normal at 11.1 creatinine normal at 0.7 calcium 8.4 Review of systems: Pertinent positives and negatives as discussed in HPI, a complete review of systems was performed and all other systems are negative. Pertinent imaging and labs reviewed. Physical examination: Vital signs reviewed General: non toxic, no distress, on 2L NC Derm: no unusual rashes/lesions, warm Head: atraumatic, normocephalic, symmetric Eyes: EOMI, anicteric sclera, pupils equal round reactive to light ENT: Nose and ears atraumatic Neck: No cervical lymphadenopathy, trachea midline, supple Mouth: no lip lesion, mucus membranes moist Cardiovascular: S1S2 reg, no murmur Lungs: CTA bilateral, no rhonchi, no rales, no accessory muscle use Abdominal: soft, no guarding, suprapubic scar with lower umbilical deformity, tenderness on light palpation of LUQ Ext: muscle strength 5 out of 5 in all 4 extremities grossly, no gross muscle atrophy, no contractures, positive dorsalis pedis pulse bilateral, no edema Neuro: CN II-XI grossly intact, no gross focal neuro deficits Psych: Alert and oriented x3, flat affect, with appropriate mood Assessment/Plan: 63-year-old female with history of schizoaffective disorder who is a transfer from [place] due to nephrolithiasis and is here for urologic evaluation. #. Sepsis secondary to infected staghorn calculi, status post cystoscopy with left ureteral stent insertion, improving #. Enterobacter + Proteus bacteremia #. CARROLL, due to hydronephrosis, secondary to above, resolved #. Acute pyelonephritis secondary to above, improving POD 3 of cystoscopy, left retrograde pyelogram, left ureteral stent insertion Cardiac monitoring Now on regular diet Discontinue Rocephin 2 g IVPB (D2) Continue with Tylenol 650 p.o. every 6 and ibuprofen 400 mg p.o. every 6 as needed for fever or pain BUN now at 13, creatinine now 1.75 Urine cultures pending Blood cultures showed positive for E. cloacae and Proteus CBC and CMP in the a.m. ID consulted. Continue cefepime 2 g IVPB every 8 hours day 3 Urology consulted. Left percutaneous left lower lithotomy planned #. Left upper quadrant abdominal tenderness, rule out obstruction Patient has not had a bowel movement since admission KUB #. Hypoxia due to atelectasis Currently on 2L NC Incentive spirometry Supportive oxygen as needed #. Hypocalcemia likely secondary to hypoalbuminemia Serum calcium at 7.8. Albumin at 2.6. Corrected calcium is 8.9. Patient is hemodynamically stable and exhibiting no symptoms Will monitor for now #. Hyperglycemia, resolved #. Elevated alkaline phosphatase, resolved Chronic Conditions: #. Hyperlipidemia Continue simvastatin 20 mg p.o. #. Asthma Continue Ventolin and Symbicort inhaler #. Hypothyroidism Continue Synthroid 100 mcg p.o. daily #. Schizoaffective disorder #. History of seizures Seizure precautions Fall precautions On carbamazepine 300 mg every 12 hours, cyclobenzaprine 10 mg, and risperidone 2 mg p.o. daily carbamazepine levels adequate Continue medications once reconciled #. GERD Continue omeprazole 40 mg p.o. daily F: Oral intake E: Replete as needed N: Regular diet A: Can self ambulate DVT ppx: Heparin subcu GI Prophylaxis: Protonix PO Joan Weaver MD PGY-1/Economic Consultant Dictation was produced using [email or web address] dictation software. please excuse any grammatical, word or spelling errors. I saw and evaluated the patient during the velasquez and critical portions of this encounter, and discussed the case in detail with the resident author of this note, I agree with the Assessment and Plan, and my changes, if any, are noted below. Patient feeling better. UCx growing GNB. Maintained on Cefepime 2g IV TID. Awaiting UCx to finalize. Urology recommends left percutaneous nephrolithotomy (PCNL) if UCx + proteus and staged ureteroscopic procedure if a different bacteria is identified. Objective - Vital Signs Vital signs: Vital Signs Temp 98.9 F 03/14/24 12:42 Pulse 92 03/14/24 12:42 Resp 19 03/14/24 12:42 BP 140/77 03/14/24 12:42 Pulse Ox 94 L 03/14/24 12:42 FiO2 Intake & Output 03/13/24 03/14/24 03/14/24 18:59 06:59 18:59 Intake Total 1860 Output Total 3200 2400 Balance -1340 -2400 Intake: Oral 1860 Output: Urine 3200 2400 Other: Voiding Method Indwelling Catheter Indwelling Catheter Indwelling Catheter - Labs CBC & Chem 7: 03/14/24 04:56 03/14/24 04:56 Labs: Abnormal Lab Results - Last 24 Hours (Table) 03/14/24 03/14/24 Range/Units 04:56 04:56 RBC 4.01 L (4.10-5.20) X 10*6/uL Hgb 11.9 L (12.0-15.0) g/dL Hct 35.3 L (37.2-46.3) % Immature Gran # 0.09 H (0.00-0.04) X 10*3/uL Calcium 8.4 L (8.7-10.3) mg/dL Microbiology - Last 24 Hours (Table) 03/11/24 09:10 Blood Culture Gram Stain - Final Blood Blood Culture - Final Enterobacter cloacae Complex Proteus mirabilis Molecular ID
[2024-03-14 19:54] VITALS: RESP 18
--- NOTE | 2024-03-15 07:39 | P.PN ---
Subjective Progress Note Date: 03/14/24 Principal diagnosis: Reason for follow-up is complicated UTI and bacteremia Patient is a 63-year-old female with a past medical history significant for asthma endometrial and ovarian cancer, hyperlipidemia osteoarthritis and seizure disorder presenting to the hospital for evaluation left-sided flank pain, patient has been diagnosed with sepsis secondary to complicated UTI in this patient who did have a left-sided hydronephrosis requiring cystoscopy and left ureteral stent placement blood culture positive for Enterobacter. On today's evaluation that is 03/14/2024, patient has been afebrile, patient is breathing comfortably and is currently on 2 L nasal cannula oxygen, patient denies having any significant cough no chest pain, patient denies nausea vomiting or diarrhea and improvement in the left-sided abdominal pain. Patient white count 7.17 creatinine 0.7 Objective - Vital Signs Vital signs: Vital Signs Temp 98.4 F 03/14/24 07:31 Pulse 77 03/14/24 07:31 Resp 19 03/14/24 07:31 BP 131/80 03/14/24 07:31 Pulse Ox 93 L 03/14/24 07:31 FiO2 Intake & Output 03/13/24 03/14/24 03/14/24 18:59 06:59 18:59 Intake Total 1860 Output Total 3200 2400 Balance -1340 -2400 Intake: Oral 1860 Output: Urine 3200 2400 Other: Voiding Method Indwelling Catheter Indwelling Catheter Indwelling Catheter - Exam GENERAL DESCRIPTION: Middle-age female lying in bed in no distress RESPIRATORY SYSTEM: Unlabored breathing , decreased breath sounds at bases HEART: S1 S2 regular rate and rhythm , ABDOMEN: Soft , no tenderness EXTREMITIES: No edema feet - Labs CBC & Chem 7: 03/14/24 04:56 03/14/24 04:56 Labs: Abnormal Lab Results - Last 24 Hours (Table) 03/14/24 03/14/24 Range/Units 04:56 04:56 RBC 4.01 L (4.10-5.20) X 10*6/uL Hgb 11.9 L (12.0-15.0) g/dL Hct 35.3 L (37.2-46.3) % Immature Gran # 0.09 H (0.00-0.04) X 10*3/uL Calcium 8.4 L (8.7-10.3) mg/dL Microbiology - Last 24 Hours (Table) 03/11/24 09:10 Blood Culture Gram Stain - Preliminary Blood Blood Culture - Preliminary Enterobacter cloacae Complex Proteus mirabilis Molecular ID Assessment and Plan (1) Sepsis Current Visit: Yes Status: Acute Code(s): A41.9 - SEPSIS, UNSPECIFIED ORGANISM SNOMED Code(s): 30130676 (2) Allergy to multiple antibiotics Current Visit: Yes Status: Acute Code(s): Z88.1 - ALLERGY STATUS TO OTHER ANTIBIOTIC AGENTS SNOMED Code(s): 980274873 (3) Urinary tract infection Current Visit: Yes Status: Acute Code(s): N39.0 - URINARY TRACT INFECTION, SITE NOT SPECIFIED SNOMED Code(s): 28548169 Plan: 1patient presented to hospital with sepsis in this patient who did have fever tachycardia elevated white count meeting criteria for SIRS source is a complicated UTI in this patient with a left ureteral stone causing left-sided hydronephrosis this patient who is status post cystoscopy and left ureteral stent placement [id number] bacteremia source is likely complicated UTI 3-patient with multiple antibiotic ALLERGIES that would limit the number of antibiotic safe to use 4-patient has shown clinical improvement white count has normalized, patient will be treated with cefepime 2 g Q8 hourly however plan is for oral Cipro on discharge once cleared for discharge from urology Dictation was produced using [employer] dictation software. please excuse any grammatical, word or spelling errors. Time with Patient: Less than 30
[2024-03-15 08:23] VITALS: TEMP 98.4
[2024-03-15 08:37] LABS: Basophils # (A) 0.06 X 10*3/uL (0.00-0.10); Basophils % (A) 0.9 %; Eosinophils # (A) 0.17 X 10*3/uL (0.04-0.35); Eosinophils % (A) 2.6 %; HCT 39.1 % (37.2-46.3); HGB 12.9 g/dL (12.0-15.0); Lymphocytes # (A) 1.17 X 10*3/uL (0.90-5.00); Lymphocytes % (A) 17.7 %; MCH 29.8 pg (27.0-32.0); MCV 90.3 FL (80.0-97.0); Mean Platelet Volume 9.5 FL (9.5-12.2); Monocytes # (A) 0.46 X 10*3/uL (0.20-1.00); NRBC Per 100 WBC 0 X 10*3/uL (0.00-0.01); Neutrophils # (A) 4.61 X 10*3/uL (1.80-7.70); Neutrophils % (A) 69.7 %; Platelet Count 205 X 10*3/uL (140-440); RBC 4.33 X 10*6/uL (4.10-5.20); RDW 12.7 % (11.5-14.5); WBC 6.61 X 10*3/uL (4.50-10.00)
[2024-03-15 08:49] LABS: BUN/Creat Ratio 17.86 Ratio (12.00-20.00); Blood Urea Nitrogen 12.5 mg/dL (9.0-27.0); Chloride 107 mmol/L (96-109); Glucose 115 mg/dL (70-110); Potassium 3.9 mmol/L (3.5-5.5); Sodium 141 mmol/L (135-145)
[2024-03-15 08:50] LABS: ALT 30 U/L (8-44); AST 26 U/L (13-35); Albumin 3.6 g/dL (3.8-4.9); Albumin/Globulin Ratio 1.71 Ratio (1.60-3.17); Alkaline Phosphatase 111 U/L (41-126); Calcium 8.8 mg/dL (8.7-10.3); Carbon Dioxide 23.5 mmol/L (21.6-31.8); Globulin 2.1 g/dL (1.6-3.3); Total Bilirubin 0.3 mg/dL (0.3-1.2); Total Protein 5.7 g/dL (6.2-8.2)
[2024-03-15 12:30] VITALS: BP 123/80; PULSE 76
--- NOTE | 2024-03-15 13:16 | P.PN ---
Subjective Progress Note Date: 03/15/24 Principal diagnosis: Reason for follow-up is complicated UTI and bacteremia Patient is a 63-year-old female with a past medical history significant for asthma endometrial and ovarian cancer, hyperlipidemia osteoarthritis and seizure disorder presenting to the hospital for evaluation left-sided flank pain, patient has been diagnosed with sepsis secondary to complicated UTI in this patient who did have a left-sided hydronephrosis requiring cystoscopy and left ureteral stent placement blood culture positive for Enterobacter. On today's evaluation that is 03/15/2024, Patient is afebrile this morning patient denies having any chest pain shortness of breath or cough, the patient is currently on 2 L nasal oxygen, patient denies any abdominal pain no diarrhea no nausea no vomiting feeling better. Patient white count 6.61, creatinine 0.7 blood urine with Enterobacter sensitive to Cipro Objective - Vital Signs Vital signs: Vital Signs Temp 98.4 F 03/15/24 07:10 Pulse 75 03/15/24 07:10 Resp 18 03/15/24 07:10 BP 129/82 03/15/24 07:10 Pulse Ox 93 L 03/15/24 07:10 FiO2 Intake & Output 03/14/24 03/15/24 03/15/24 18:59 06:59 18:59 Intake Total 1500 700 Output Total 2000 725 1000 Balance - Intake: Intake, IV Titration 220 Amount Cefepime 2 gm In Sodium 100 Chloride 0.9% 100 ml @ 25 mls/hr IVPB Q8HR [facility] Rx# :[id number] Sodium Chloride 0.9% 1, 120 000 ml @ 0 mls/hr IV .[facility] Rx#:[id number] Oral 1500 480 Output: Urine 1999 725 1000 Uretheral (Lam) 500 Other: Voiding Method Indwelling Catheter Indwelling Catheter Indwelling Catheter - Exam GENERAL DESCRIPTION: Middle-age female lying in bed in no distress RESPIRATORY SYSTEM: Unlabored breathing , decreased breath sounds at bases HEART: S1 S2 regular rate and rhythm , ABDOMEN: Soft , no tenderness EXTREMITIES: No edema feet - Labs CBC & Chem 7: 03/15/24 04:22 03/15/24 04:22 Labs: Abnormal Lab Results - Last 24 Hours (Table) 03/15/24 03/15/24 Range/Units 04:22 04:22 Immature Gran # 0.14 H (0.00-0.04) X 10*3/uL Glucose 115 H (70-110) mg/dL Total Protein 5.7 L (6.2-8.2) g/dL Albumin 3.6 L (3.8-4.9) g/dL Microbiology - Last 24 Hours (Table) 03/11/24 11:13 Urine Culture - Final Urine,Voided Enterobacter cloacae 03/11/24 09:10 Blood Culture Gram Stain - Final Blood Blood Culture - Final Enterobacter cloacae Complex Proteus mirabilis Molecular ID Assessment and Plan (1) Sepsis Current Visit: Yes Status: Acute Code(s): A41.9 - SEPSIS, UNSPECIFIED ORGANISM SNOMED Code(s): 21633423 (2) Allergy to multiple antibiotics Current Visit: Yes Status: Acute Code(s): Z88.1 - ALLERGY STATUS TO OTHER ANTIBIOTIC AGENTS SNOMED Code(s): 003335813 (3) Urinary tract infection Current Visit: Yes Status: Acute Code(s): N39.0 - URINARY TRACT INFECTION, SITE NOT SPECIFIED SNOMED Code(s): 19662109 Plan: 1patient presented to hospital with sepsis in this patient who did have fever tachycardia elevated white count meeting criteria for SIRS source is a complicated UTI in this patient with a left ureteral stone causing left-sided hydronephrosis this patient who is status post cystoscopy and left ureteral stent placement [id number] bacteremia source is likely complicated UTI 3-patient with multiple antibiotic ALLERGIES that would limit the number of antibiotic safe to use 4-patient has shown clinical improvement white count has normalized, 5patient will finish therapy with oral Cipro prescription has been sent to the pharmacy discussed with the resident physician Dictation was produced using [employer] dictation software. please excuse any grammatical, word or spelling errors. Time with Patient: Less than 30
--- NOTE | 2024-03-15 15:28 | P.DS ---
Providers Date of admission: 03/11/24 13:18 Attending physician: Catalino Newsome MD Consults: 03/11/24 12:43 Consult Physician Urgent Consulting Provider: Gustavo Hansen Consult Reason/Comments: nephrolithiasis Do you want consulting provider notified?: Yes 03/12/24 11:21 Consult Physician Routine Consulting Provider: Daysi Cota Consult Reason/Comments: bacteremia Do you want consulting provider notified?: Yes Primary care physician: [facility] Course: Hospital Course: Patient is a 63-year-old female with hyperlipidemia, asthma, GERD, hypothyroidism, seizures, and schizoaffective disorder who is a transfer from [place] due to nephrolithiasis. Imaging from [place]: CT scan of the abdomen showed staghorn calculus with superior pole of the left kidney measuring up to 2 cm, and cholelithiasis. Labs from [place], showed WBC elevated at 18.06 hemoglobin 14.7 platelet 227,000 neutrophils elevated at 89. Sodium 140 potassium 3.6 chloride 110 bicarb 23 glucose 156 which is elevated BUN 19.4 creatinine 0.94 AST 44 which is elevated ALT 39 that is elevated alk phos 145 which is elevated at lactic acid elevated at 2.5. TSH was normal at 2.32. Urinalysis at that time only had +3 blood VBG showed pH of 7.43 which is elevated pCO2 31 which is low and pO2 46.7 which is elevated Labs from [facility] ED: WBC 17.5 hemoglobin 14.3 platelet count 1 74,000 sodium 139 potassium 4.2 chloride 108 BUN 20 creatinine 1.07 glucose 169 AST 39 ALT 34 alk phos 129 amylase 40 lipase 32. Urinalysis was turbid in appearance +2 protein trace glucose trace ketones large blood positive for nitrites and leukocyte esterase, RBCs, WBCs. Patient was negative for influenza, RSV and SARS COV 2 Imaging and [facility] ED: Chest x-ray independently interpreted shows hypoaeration but with some congestion. KUB x-ray reported to have 7 mm stone in the left mid ureter and staghorn calculi in the left kidney measuring up to 1.3 cm. Vitals on admission to our ED showed patient was a febrile at 106.3 pulse rate 115 respiratory rate 30 blood pressure 168/47 oxygen saturation 95% on nasal cannula 3 L Patient was admitted for sepsis secondary to infected staghorn calculi, CARROLL and acute pyelonephritis. Urology consulted, IV antibiotics initiated, IV fluids initiated, blood cultures and urine cultures ordered, and pain control provided. Urology recommended emergent cystoscopy with left ureteral stent insertion and was successful with no complications. Blood cultures showed positive for E cloacae and Proteus. ID was consulted and antibiotics was switched from Rocephin to cefepime. Urine cultures positive for E cloacae. Urology plan for outpatient ureteroscopic procedures. Infectious disease transitioned IV cefepime to oral ciprofloxacin. Patient had left upper quadrant pain and KUB x- ray was ordered. KUB showed normal gas pattern and no acute processes occurring except for already present hydronephrosis. Patient also noted to require 2 L nasal cannula for adequate oxygenation and chest x-ray was ordered. Chest x-ray showed minimal platelike atelectasis at the left lung base and incentive spirometer use was reinforced. Patient's symptoms improved throughout hospital stay. Liver enzymes improved throughout hospital stay. Patient is cleared for discharge today by urology and infectious disease and was prescribed oral ciprofloxacin for 11 days and walker for safe ambulation. Patient advised to see urology for stent removal and ureteroscopy in 1 week. Also advised to see infectious disease and PCP on outpatient basis. Final Diagnosis: #. Sepsis secondary to infected staghorn calculi, status post cystoscopy with left ureteral stent insertion, improving #. Enterobacter + Proteus bacteremia, improving #. CARROLL, due to hydronephrosis, secondary to above, resolved #. Acute pyelonephritis secondary to above, improving #. Left upper quadrant abdominal tenderness, obstruction ruled out #. Hypoxia due to atelectasis #. Hypocalcemia likely secondary to hypoalbuminemia, stable #. Hyperglycemia, resolved #. Elevated alkaline phosphatase, resolved #. Hyperlipidemia #. Asthma #. Hypothyroidism #. Schizoaffective disorder #. History of seizures #. GERD Physical examination: Vital signs reviewed General: non toxic, no distress, room air Derm: no unusual rashes/lesions, warm Head: atraumatic, normocephalic, symmetric Eyes: EOMI, anicteric sclera, pupils equal round reactive to light ENT: Nose and ears atraumatic Neck: No cervical lymphadenopathy, trachea midline, supple Mouth: no lip lesion, mucus membranes moist Cardiovascular: S1S2 reg, no murmur Lungs: CTA bilateral, no rhonchi, no rales, no accessory muscle use Abdominal: soft, no guarding, nontender, suprapubic scar with lower umbilical deformity Ext: muscle strength 5 out of 5 in all 4 extremities grossly, no gross muscle atrophy, no contractures, positive dorsalis pedis pulse bilateral, no edema Neuro: CN II-XI grossly intact, no gross focal neuro deficits Psych: Alert and oriented x3, flat affect, with appropriate mood I saw and evaluated the patient during the velasquez and critical portions of this encounter, and discussed the case in detail with the resident author of this note, I agree with the Assessment and Plan, and my changes, if any, are noted below. Follow up with Urology for stent removal and ureteroscopy in 1 week. Patient Condition at Discharge: Stable Plan - Discharge Summary Discharge Rx Participant: Yes New Discharge Prescriptions: New Ciprofloxacin HCl [Cipro] 500 mg PO Q12HR 11 Days #22 tab Continue risperiDONE [RisperDAL] 2 mg PO HS Simvastatin [Zocor] 20 mg PO DAILY Omeprazole [PriLOSEC] 40 mg PO DAILY Levothyroxine Sodium [Synthroid] 100 mcg PO DAILY Cyclobenzaprine [Flexeril] 10 mg PO BID Albuterol Inhaler [Ventolin Hfa Inhaler] 2 puff INHALATION RT-Q4H Fluticasone Propion/Salmeterol [Fluticasone-Salmeterol 250-50] 1 puff INHALATION RT-BID carBAMazepine [carBAMazepine ER] 300 mg PO BID Fluticasone Nasal [place] [Flonase Nasal [place]] 2 spr EA NOSTRIL DAILY Discharge Medication List Albuterol Inhaler [Ventolin Hfa Inhaler] 2 puff INHALATION RT-Q4H 10/13/17 [History] Cyclobenzaprine [Flexeril] 10 mg PO BID 10/13/17 [History] Levothyroxine Sodium [Synthroid] 100 mcg PO DAILY 10/13/17 [History] Omeprazole [PriLOSEC] 40 mg PO DAILY 10/13/17 [History] Simvastatin [Zocor] 20 mg PO DAILY 10/13/17 [History] risperiDONE [RisperDAL] 2 mg PO HS 10/13/17 [History] Fluticasone Nasal [place] [Flonase Nasal [place]] 2 spr EA NOSTRIL DAILY 03/11/24 [History] Fluticasone Propion/Salmeterol [Fluticasone-Salmeterol 250-50] 1 puff INHALATION RT-BID 03/11/24 [History] carBAMazepine [carBAMazepine ER] 300 mg PO BID 03/11/24 [History] Ciprofloxacin HCl [Cipro] 500 mg PO Q12HR 11 Days #22 tab 03/15/24 [Rx] Follow up Appointment(s)/Referral(s): Gustavo Hansen MD [STAFF PHYSICIAN] - 1 Week (office will call you for appointment date/time.) Daysi Cota MD [STAFF PHYSICIAN] - 03/28/24 3:15 pm Alyssa Madden MD [Primary Care Provider] - 1-2 days Ambulatory/Diagnostic Orders: Walker w/ Wheels [[email or web address]] Location: None Selected Patient Instructions/Handouts: Cystoscopy (DC), Ureteral Stent Placement (DC) Activity/Diet/Wound Care/Special Instructions: Please see PCP, urology (dr. Hansen) , infectious disease (Dr. Cota) Take antibiotics as prescribed for 11 days Use walker when ambulating Discharge Disposition: HOME SELF-CARE
== END 2024-03-15 16:37 | disposition home or self-care (01) | DRG 854 ==
LOC: EC 07:56 → EEVIPCON 13:18 → 3SCARD 13:18 → 5NMEDONC 03-12 15:16
PROVIDERS: ADMIT Family Medicine; ATTEND Family Medicine
PROC: 0T778DZ Dilation of Left Ureter with Intraluminal Device, Via Natural or Artificial Opening Endoscopic (ICD-10-PCS; principal; 2024-03-11 13:50)
PROC: BT1F1ZZ Fluoroscopy of Left Kidney, Ureter and Bladder using Low Osmolar Contrast (ICD-10-PCS; 2024-03-11 13:50)
DX: A41.59 Other Gram-negative sepsis (principal); F84.0 Autistic disorder; J98.11 Atelectasis; N13.6 Pyonephrosis; N17.9 Acute kidney failure, unspecified; E03.9 Hypothyroidism, unspecified; E78.5 Hyperlipidemia, unspecified; E83.51 Hypocalcemia; F25.9 Schizoaffective disorder, unspecified; F31.9 Bipolar disorder, unspecified; G40.909 Epilepsy, unspecified, not intractable, without status epilepticus; J45.909 Unspecified asthma, uncomplicated; K21.9 Gastro-esophageal reflux disease without esophagitis; K76.0 Fatty (change of) liver, not elsewhere classified; K80.20 Calculus of gallbladder without cholecystitis without obstruction; R09.02 Hypoxemia; E88.09 Other disorders of plasma-protein metabolism, not elsewhere classified; R73.9 Hyperglycemia, unspecified; R65.20 Severe sepsis without septic shock; Z90.710 Acquired absence of both cervix and uterus; Z87.442 Personal history of urinary calculi; Z85.43 Personal history of malignant neoplasm of ovary; Z85.42 Personal history of malignant neoplasm of other parts of uterus; Z88.1 Allergy status to other antibiotic agents; Z79.890 Hormone replacement therapy; Z88.0 Allergy status to penicillin; Z88.8 Allergy status to other drugs, medicaments and biological substances; Z91.041 Radiographic dye allergy status
CPT/HCPCS: 36415; 36600; 71045; 71046; 71275; 74018; 74420; 80048; 80053; 80156; 81001; 82150; 82805; 83036; 83605; 83690; 85025; 87040; 87077; 87086; 87186; 87636; 94640; 96365; 96367; 96375; 99291